=== PATIENT | female | born 1960 | race Caucasian/White ===

== ENCOUNTER → 2020-11-02 14:14 | Outpatient (CLI) | payer OTHER, SELFPAY ==
--- NOTE | 2020-11-02 14:20 | RAD_ITS ---
STUDY: X-RAY - LUMBAR SPINE REASON FOR EXAM: Female, 60 years old. Low back pain TECHNIQUE: 5 view(s) of the lumbar spine were obtained. COMPARISON: None FINDINGS: Normal lumbar lordosis. There is no substantial scoliosis. There is a normal alignment of the vertebrae. There is multilevel endplate spondylosis of the lumbar vertebrae. There is disc space narrowing throughout the lumbar spine most pronounced at L4-5. No demonstrated fracture The soft tissue structures are unremarkable. RAD/L/S Spine Min 4 Views IMPRESSION: Degenerative changes of the spine, as detailed above. Electronically Signed: Tristen Michael MD at 14:58 EDT , Service support ,
--- NOTE | 2020-11-02 14:20 | RAD_ITS ---
STUDY: X-RAY - PELVIS AND LEFT HIP REASON FOR EXAM: Female, 60 years old. Pain, decreased range of motion TECHNIQUE: 3 views of the pelvis and hip. COMPARISON: None. FINDINGS: There is a non-specific bowel gas pattern. Normal visualized soft tissue structures. Normal bilateral iliac wings, sacroiliac joints and visualized sacrum. Normal bilateral superior and inferior pubic rami. Normal pubic symphysis. Normal bilateral ischial tuberosities. Normal visualized femoral head. Normal acetabulum. There is moderate articular joint space narrowing of the hip. RAD/HIP, UNI W/ Pelvis 2-3 Views IMPRESSION: Moderate left hip arthrosis with subtle subchondral changes and cyst formation noted in the left femoral head. Age consistent right hip and SI joint arthrosis Electronically Signed: Tristen Michael MD at 14:59 EDT , Service support ,
== END ==
PROVIDERS: PCP Family Medicine; Referring Provider Family Medicine; Visit Provider Family Medicine
DX: M54.16 Radiculopathy, lumbar region (principal); M25.552 Pain in left hip
CPT/HCPCS: 72110; 73502

== ENCOUNTER → 2021-07-30 | Outpatient (CLI) | payer OTHER, SELFPAY ==
--- NOTE | 2021-07-30 14:14 | BI_ITS ---
MAMMOGRAPHY - BILATERAL SCREENING REASON FOR EXAM: Female, 61 years old. Routine annual screening examination. PERTINENT HISTORY: Non-contributory. TECHNIQUE: Digital bilateral breast colin (3D mammographic acquisition) in the CC and MLO projections. 2-D mediolateral oblique (MLO) and craniocaudad (CC) views of both breasts were obtained. CAD: Full Field Digital Mammography with Computer Added Detection was performed. COMPARISON: Comparison is made with prior study dated 06/20/2016 and 07/21/2013. FINDINGS: Breast Composition: There are scattered areas of fibroglandular density. There are no dominant masses or suspicious calcifications. No other significant abnormalities are identified. There has been no significant change since the prior study. BI/SCRN MAMM (CAD)W/COLIN BILAT IMPRESSION: Stable bilateral screening mammogram. Yearly follow-up mammogram recommended. (A) ASSESSMENT CATEGORY: BIRADS Category 1: Negative. A letter regarding these results will be sent to the patient by the facility within 30 days. Approximately 10% of breast cancers are not detected by mammography. A normal mammogram should not delay biopsy of a clinically suspicious abnormality. [id number] Electronically Signed: Flakito Travis MD at 10:25 EDT ,
--- NOTE | 2021-07-30 14:19 | BD_ITS ---
STUDY: DUAL ENERGY X-RAY ABSORPTIOMETRY / DXA REASON FOR EXAM: Female, 61 years old. M810. Patient is postmenopausal. TECHNIQUE: Bone Mineral Density (BMD) measurements of lumbar spine and bilateral hips were obtained. COMPARISON: None. FINDINGS: Lumbar Spine (L1-L4): g/cm2 (0.779) / T-score (-2.4) / Z-score (-0.9) Findings are suggestive of osteopenia with a high fracture risk. Left Femur Total: g/cm2 (0.565) / T-score (-3.1) / Z-score (-2.1) Left Femoral Neck: g/cm2 (0.584) / T-score (-2.4) / Z-score (-1.0) Right Femur Total: g/cm2 (0.650) / T-score (-2.4) / Z-score (-1.4) Right Femoral Neck: g/cm2 (0.603) / T-score (-2.2) / Z-score (-0.9) BD/Dexa Bone Density Study IMPRESSION: The patient is considered osteoporotic as outlined below according to World Seven Organization (WHO) criteria with a high fracture risk. Reference Information: The T-score is the number of standard deviations above or below the standard which is normal for young adults at their peak bone mineral density. The World Health Organization (WHO) interprets the T-scores as follows: Above -1 Normal bone density Between -1 and -2.5 Osteopenia Equal to / or below -2.5 Osteoporosis As a practical clinical guideline, osteopenia may be graded as follows: Mild -1 through -1.5 Moderate -1.6 through -2.0 Severe -2.1 through -2.4 The Z-score is the number of standard deviations above or below age-matched controls. A Z-score of less than -1.5 would be considered abnormal. References: 1. NIH Osteoporosis and Related Bone Diseases www osteo.org 2. International Society for Clinical Densitometry www iscd.org 3. National Osteoporosis Foundation www nof.org Electronically Signed: Flakito Travis MD at 14:44 EDT ,
== END | disposition home or self-care (01) ==
LOC: OPBD 14:11
PROVIDERS: PCP Family Medicine; Referring Provider Family Medicine; Visit Provider Family Medicine
DX: Z12.31 Encounter for screening mammogram for malignant neoplasm of breast (principal); M81.0 Age-related osteoporosis without current pathological fracture
CPT/HCPCS: 77063; 77067; 77080

== ENCOUNTER 2021-09-25 06:22 | Day surgery (SDC) | payer OTHER, SELFPAY ==
--- NOTE | 2021-09-25 06:49 | PCM.HP.STD ---
[facility] - General General Date of Admission: 09/25/21 Chief Complaint: Screening for intestinal cancer HPI Narrative JEFFREY QUARLES, is a 61 F who presents for screening colonoscopy today. She presents via open access. She denies ever having a previous colonoscopy. She denies abdominal pain. No bright red blood per rectum. No family history of colon cancer. [facility] Medical History (Updated 09/20/21 @ 08:36 by Charleen Watson) Arthritis Back pain History of pain when walking Hx of fracture of wrist Leg cramps Non-smoker Post-menopausal Rash Restless legs Wears glasses Home Medications triamcinolone acetonide 0.5 % topical cream 1 applic topical BID 07/22/21 [History Last Taken Unknown] acetaminophen 650 mg tablet,extended release 650 mg PO Q12H PRN Pain 09/20/21 [History Last Taken Unknown] aspirin 325 mg tablet 325 mg PO DAILY 09/20/21 [History Last Taken Unknown] omega-3 fatty acids-vitamin E 1,000 mg capsule 1,000 cap PO DAILY 09/20/21 [History Last Taken Unknown] Allergy/AdvReac Type Severity Reaction Status Date / Time No Known Allergies Allergy Unverified 09/20/21 08:27 Surgical History (Updated 09/20/21 @ 08:36 by Charleen Watson) History of bunionectomy Hx of ovarian cystectomy Social History Smoking Status: Never smoker ROS Constitutional Constitutional: Reports systems reviewed and no addt'l complaints, except as documented Cardiovascular Cardiovascular: Denies chest pain Respiratory/Chest Respiratory/Chest: Denies shortness of breath at rest Gastrointestinal Gastrointestinal: Denies abdominal pain, change in bowel habits, hematochezia or melena Physical Exam Const alert, oriented x3 and no apparent distress General Appearance: cooperative and comfortable Eyes General Eye: normal appearance of both eyes Neck General: normal visual inspection Chest inspection of chest normal Resp Effort and Inspection: able to speak in complete sentences and symmetric chest movement Auscultation: clear to auscultation bilaterally Cardio regular rate and regular rhythm GI soft to palpation, non-tender and non-distended Extremity no calf tenderness Neuro oriented x3 Psych thought process normal Assessment & Plan Assessment/Plan (1) Encounter for screening for malignant neoplasm of colon: PLAN: The patient presents via open access today to proceed with a screening colonoscopy with possible biopsy or polypectomy as indicated. She is aware of the technique, benefit, risk, alternatives. She has had an opportunity to ask and have questions answered. Dr. Linnea Uriarte is unavailable today and the patient is aware that I will be filling in to assist her with this procedure. She provides consent. Merrlil Pride M.D., F.A.C.S.
[2021-09-25 06:50] VITALS: BP 104/54; PULSE 68; RESP 16; TEMP 36.9; O2SAT 100; BMI 22.1
[2021-09-25] MEDS: Lactated Ringers 1,000 ML 15 ML IV (06:57)
--- NOTE | 2021-09-25 07:30 | COLBX_PTH ---
PATIENT: JEFFREY QUARLES LOC: EN U#:[id number] AGE/SX: 61/F ROOM: RE09/25/[address]: Dr. Merrill Pride MD : 1960 BED: DIS: 09/25/2021 SPEC #: [id number] RECD: 09/25/21 09:24 STATUS: JOLYNN ANURAG #: [id number] SRIRAM: 09/25/21 07:[address]: Merrill Pride DEPT: SURGICAL PATHOLOGY RECD BY: Rere Moreno ENTERED: 09/25/21 11:25 SP TYPE: COLON BX OTHR DR: Dr. Fabienne Ling, DO Tissues: Transverse colon Procedures: Surgery Specimen Level IV HEADER OPERATION: Colonoscopy ? open access (MAC) PRE-OP DIAGNOSIS: Malignant neoplasm of colon TISSUE SUBMITTED: Distal transverse colon tubular polyp MICROSCOPIC DIAGNOSIS Distal transverse colon polyp, biopsy: Benign mucosal polyp. See comment. AM:alfonso 09/26/2021 COMMENT Neither hyperplastic nor adenomatous change is identified. Clinical correlation is suggested. Case has been reviewed in consultation with Dr. Betancourt who concurs with the above diagnosis. IDC:SJ MICROSCOPIC DESCRIPTION Slides are reviewed. GROSS DESCRIPTION Received in fixative is one container labeled with the patient's name and designated distal transverse colon polyp. The specimen consists of an elongated fragment of rizzo tissue measuring 2.5 x 0.5 x 0.3 cm. The specimen is totally submitted in one cassette. / AM:alfonso 09/25/2021 TC:1 CPT: 63373
[2021-09-25 08:10] VITALS: BP 104/54; BP 115/67; PULSE 69; RESP 16; TEMP 36.9; O2SAT 97
--- NOTE | 2021-09-25 08:11 | OP.COLON_ITS ---
Patient Name: Natalie Trimble Procedure Date: 09/25/2021 7:33 AM Date of : 1960 Age: 61 Procedure: Colonoscopy Indications: Screening for colorectal malignant neoplasm Providers: Merrill Pride MD Medicines: See the Anesthesia note for documentation of the administered medications Patient Profile: Last Colonoscopy: none. The patient's first colonoscopy is today. Complications: No immediate complications. Procedure: Pre-Anesthesia Assessment: - Prior to the procedure, a History and Physical was performed, and patient medications and allergies were reviewed. The patient's tolerance of previous anesthesia was also reviewed. The risks and benefits of the procedure and the sedation options and risks were discussed with the patient. All questions were answered, and informed consent was obtained. Prior Anticoagulants: The patient has taken no previous anticoagulant or antiplatelet agents. ASA Grade Assessment: II - A patient with mild systemic disease. After reviewing the risks and benefits, the patient was deemed in satisfactory condition to undergo the procedure. After I obtained informed consent, the scope was passed under direct vision. Throughout the procedure, the patient's blood pressure, pulse, and oxygen saturations were monitored continuously. The colonoscope was introduced through the anus and advanced to the cecum, identified by appendiceal orifice and ileocecal valve. The colonoscopy was performed without difficulty. The patient tolerated the procedure well. The quality of the bowel preparation was good. The ileocecal valve and the appendiceal orifice were photographed. Scope In: 7:38:00 AM Scope Withdrawal Time 0 hours 16 minutes 20 seconds Scope Out: 8:04:03 AM Total Procedure Duration Time 0 hours 26 minutes 3 seconds Findings: Hemorrhoids were found on perianal exam. A 30 mm polyp was found in the distal transverse colon. The polyp was pedunculated. The polyp was removed with a hot snare. Resection and retrieval were complete. To prevent bleeding post-intervention, one hemostatic clip was successfully placed. There was no bleeding at the end of the procedure. The exam was otherwise without abnormality. Impression: - Hemorrhoids found on perianal exam. - One 30 mm polyp in the distal transverse colon, long and tubular, removed with a hot snare. Resected and retrieved. Clip was placed. - The examination was otherwise normal. Recommendation: - Discharge patient to home. - Resume previous diet. - Continue present medications. - Repeat colonoscopy in 5 years for surveillance. - Telephone my office for pathology results in 1 week. Procedure Code(s): --- Professional --- 82237, Colonoscopy, flexible; with removal of tumor(s), polyp(s), or other lesion(s) by snare technique Diagnosis Code(s): --- Professional --- Z12.11, Encounter for screening for malignant neoplasm of colon K64.9, Unspecified hemorrhoids D12.3, Benign neoplasm of transverse colon (hepatic flexure or splenic flexure) CPT copyright 2017 [place]. All rights reserved. The codes documented in this report are preliminary and upon dining room attendant review may be revised to meet current compliance requirements. Merrill Pride MD 09/25/2021 8:10:57 AM This report has been signed electronically. Number of Addenda: 0 Note Initiated On: 09/25/2021 7:33 AM
--- NOTE | 2021-09-25 08:12 | OP.CCLET_ITS ---
09/25/2021 Fabienne Ling [address] [place] [address] Re : Colonoscopy procedure for Natalie Trimble Dear Dr. Ling This procedure was performed on Saturday, September 25, 2021. My impressions and recommendations are as follows: Impressions : - Hemorrhoids found on perianal exam. - One 30 mm polyp in the distal transverse colon, long and tubular, removed with a hot snare. Resected and retrieved. Clip was placed. - The examination was otherwise normal. Recommendations : - Discharge patient to home. - Resume previous diet. - Continue present medications. - Repeat colonoscopy in 5 years for surveillance. - Telephone my office for pathology results in 1 week. My findings are described in the full procedure note, which is enclosed. If I can be of further assistance, please feel free to contact me at Doctor phone number(s): Work: . Sincerely, Merrill Pride MD 09/25/2021 8:10:57 AM This report has been signed electronically.
[2021-09-25 08:15] VITALS: BP 104/54; BP 114/68; PULSE 68; RESP 16; O2SAT 100
[2021-09-25 08:20] VITALS: BP 104/54; BP 116/63; PULSE 66; RESP 16; O2SAT 100
[2021-09-25 08:25] VITALS: BP 104/54; BP 121/63; PULSE 62; RESP 16; TEMP 36.3; O2SAT 99
[2021-09-25 08:50] VITALS: BP 104/54
== END 2021-09-25 09:03 | disposition home or self-care (01) ==
LOC: EN 06:25 → AC 06:25
PROVIDERS: PCP Family Medicine; Referring Provider Family Medicine; Visit Provider Surgery
PROC: 0DJD8ZZ Inspection of Lower Intestinal Tract, Via Natural or Artificial Opening Endoscopic (ICD-10-PCS; CPT 45378; principal; 2021-09-25 07:25)
DX: Z12.11 Encounter for screening for malignant neoplasm of colon (principal); K63.5 Polyp of colon; K64.9 Unspecified hemorrhoids; Z79.82 Long term (current) use of aspirin
CPT/HCPCS: 45385; 88305; J7120

== ENCOUNTER → 2024-12-13 | Outpatient (CLI) | payer OTHER, SELFPAY ==
[2024-12-13 15:25] LABS: Hematocrit 39.7 % (37-47); Hemoglobin 13.0 g/dL (12.0-15.0); Immature Granulocytes Count 0.000 X10^3/uL (0.0-0.0); Mean Corp Hgb Conc 32.7 g/dL (32-36); Mean Corpuscular Volume 94.5 fL (81-99); Mean Platelet Vol. 9.0 fl (6.2-12.0); NRBC Flagged by Analyzer 0 % (0-5); Platelet Count 301 K/mm3 (150-450); RBC Distribution Width CV 13.2 % (11.6-14.6); RBC Distribution Width SD 46.6 fl (35.1-43.9); Red Blood Count 4.20 M/mm3 (4.2-5.4); White Blood Count 4.2 K/mm3 (4.4-11.0)
[2024-12-13 18:15] LABS: AST(SGOT) 33 U/L (<=31); Alanine Aminotransfer ALT/SGPT 41 U/L (<=34); Albumin, Serum 4.3 g/dL (3.4-4.8); Alkaline Phosphatase 88 U/L (35-104); Anion Gap 10 (5-15); BUN 16 mg/dL (4-19); BUN/Creat Ratio 17.6 RATIO (10-20); Calcium,Total 9.5 mg/dL (7.6-11.0); Carbon Dioxide 24.0 mmol/L (21.0-32.0); Chloride 106 mmol/L (98-108); Cholesterol 319 mg/dL (<=200); Globulin 2.9 g/dL (2.2-4.2); Glucose 96 mg/dL (70-99); Low Density Lipoprotein Calc. 230 mg/dL; Potassium 4.4 mmol/L (3.3-5.1); Triglycerides 77 mg/dL; Very Low Density Lipoprotein 15 mg/dL (5-40); Vitamin D,25 Hydroxy 17.4 ng/mL (30-100); cholesterol:hdl ratio screen 4.35
--- OUTSIDE RECORDS SUMMARY | 2024-12-13 20:15 | XMS RPT_ITS | CCD ---
Author Organization [facility] Inform ion Partnership [facility] Care Team Providers Care B[employer] Operations Manager Name Role Phone Dr. Fabienne Ling Primary Care Provider Kacie Ravi Attending Provider Unavailable SANDRINE NESS Primary Care Physician NOHEMY HAYS MD Attending Unavailable SANDRINE NESS Primary Care Unavailable NOHEMY HAYS MD Attending Unavailable SANDRINE NESS Primary Care Unavailable Sandrine Ness Attending Unavailable Sandrine Ness Referring Unavailable Fabienne Ling Primary Care Unavailable Sandrine Ness Attending Unavailable Fabienne Ling Primary Care Unavailable Fabienne Ling Primary Care Unavailable Sandrine Ness Attending Unavailable Medications Current Medications Medication Drug Class(es) Dates Sig (Normalized) Sig (Original) [facility] Medication (4 sources) Start: 02-20-2022 [facility] Medication 0 Refill(s) Start Date: 02/20/22 Status: Ordered triamcinolone acetonide 5 mg/ml topical cream (1 source) Corticosteroid Start: 07-22-2021 Triamcinolone Acetonide Active 1 APPLIC TOPICAL TWICE A DAY July 22, 2021 12:04pm Problems Problem Classification Problem Date Documented Date Episodic/Chronic Hemorrhoids (1 source) Hemorrhoids; Translations: [Unspecified hemorrhoids] Episodic Osteoarthritis (1 source) Osteoarthritis of left hip joint; Translations: [Unilateral primary osteoarthritis, left hip] Chronic Osteoporosis (1 source) Age-related osteoporosis without current pathological fracture; Translations: [Age-related osteoporosis without current pathological fracture] Onset: 12-12-2024 Chronic Other inflammatory condition of skin (1 source) Psoriasis; Translations: [Psoriasis, unspecified] Chronic Other screening for suspected conditions (not mental disorders or infectious disease) (2 sources) Patient encounter status; Translations: [Encounter for screening for malignant neoplasm of colon] Onset: 12-12-2024 Episodic Spondylosis; intervertebral disc disorders; other back problems (1 source) Lumbar spondylosis; Translations: [Spondylosis without myelopathy or radiculopathy, lumbar region] Chronic Results Test Name Value Interpretation Reference Range Facility CBC W/Diff, Automatedon 09-0 Absolute Lymph 1.41 X10 3/uL Normal 0.83-4.51 [facility] Comment on above: Performed By: #### L 100.0100 #### [facility] [address] [place], [address] Absolute Neut 2.2 X10 3/uL Normal 2.0-7.7 [facility] Comment on above: Performed By: #### L 100.0100 #### [facility] [address] [place], [address] Basophils/100 WBC (Bld) 0.5 % Normal 0-1 [facility] Comment on above: Performed By: #### L 100.0100 #### [facility] [address] [place], [address] Eosinophils/100 WBC (Bld) 5.8 % High 0-5 [facility] Comment on above: Performed By: #### L 100.0100 #### [facility] [address] [place], [address] Erythrocyte distribution width (RBC) [Ratio] 13.2 % Normal 11.6-14.6 [facility] Comment on above: Performed By: #### L 100.0100 #### [facility] [address] [place], [address] Hematocrit (Bld) [Volume fraction] 39.7 % Normal 37-47 [facility] Comment on above: Performed By: #### L 100.0100 #### [facility] [address] [place], [address] Hemoglobin (Bld) [Mass/Vol] 13.0 g/dL Normal 12.0-15.0 [facility] Comment on above: Performed By: #### L 100.0100 #### [facility] [address] [place], [address] IG% 0.000 Normal 0.0-0.9 [facility] Comment on above: Result Comment: IG% - Immature Granulocytes (promyelocytes, myelocytes and metamyelocytes) > 1% indicates that a LEFT SHIFT is Present. Performed By: #### L 100.0100 #### [facility] [address] [place], [address] Lymphocytes/100 WBC (Bld) 33.8 % Normal 19-41 [facility] Comment on above: Performed By: #### L 100.0100 #### [facility] [address] [place], [address] MCH (RBC) [Entitic mass] 31.0 pg Normal 27.0-32.0 [facility] Comment on above: Performed By: #### L 100.0100 #### [facility] [address] [place], [address] MCHC (RBC) [Mass/Vol] 32.7 g/dL Normal 32-36 [facility] Comment on above: Performed By: #### L 100.0100 #### [facility] [address] [place], [address] MCV (RBC) [Entitic vol] 94.5 fL Normal 81-99 [facility] Comment on above: Performed By: #### L 100.0100 #### [facility] [address] [place], [address] Monocytes/100 WBC (Bld) 7.9 % Normal 0-10 [facility] Comment on above: Performed By: #### L 100.0100 #### [facility] [address] [place], [address] Neutrophils/100 WBC (Bld) 52.0 % Normal 47-70 [facility] Comment on above: Performed By: #### L 100.0100 #### [facility] [address] [place], [address] Nucleated RBC (Bld) [#/Vol] 0 10*3/uL Normal 0-5 [facility] Comment on above: Performed By: #### L 100.0100 #### [facility] [address] [place], [address] Platelet mean volume (Bld) [Entitic vol] 9.0 fL Normal 6.2-12.0 [facility] Comment on above: Performed By: #### L 100.0100 #### [facility] [address] [place], [address] Platelets (Bld) [#/Vol] 301 10*3/uL Normal 150-450 [facility] Comment on above: Performed By: #### L 100.0100 #### [facility] [address] [place], [address] RBC (Bld) [#/Vol] 4.20 10*6/uL Normal 4.2-5.[address] [facility] Comment on above: Performed By: #### L 100.0100 #### [facility] [address] [place], [address] RDW SD 46.6 fl High 35.1-43.9 [facility] Comment on above: Performed By: #### L 100.0100 #### [facility] [address] [place], [address] WBC (Bld) [#/Vol] 4.2 10*3/uL Low 4.4-11.0 [facility] Comment on above: Performed By: #### L 100.0100 #### [facility] [address] [place], [address] Final Surgical Pathology Rep [place] 03-12-2022 Final Surgical Pathology Report . Pathology Reports Accession: Collected Date/Time: Received Date/Time: Pathologist: [id number] 03/07/2022 12:45 EST 03/10/2022 09:36 EST MD PAPA WEST Final Surgical Pathology Report DIAGNOSIS: LEFT FEMORAL HEAD, REPLACEMENT - OSTEOARTHRITIS WITH EXTENSIVE EBURNATION. NEGATIVE FOR INFLAMMATION OR NEOPLASIA. COMMENT: [facility] [id number] CLINICAL INFORMATION: Procedure: ANTERIOR LEFT TOTAL HIP ARTHROPLASTY Preoperative diagnosis: UNILATERAL PRIMARY OSTEOARTHRITIS LEFT HIP Postoperative diagnosis: UNILATERAL PRIMARY OSTEOARTHRITIS LEFT HIP SPECIMEN: A LEFT FEMORAL HEAD, LEFT GROSS DESCRIPTION: A. Received in formalin, labeled with the patients name, Case #[id number], and left femoral head are 3 fragments of irregular shaped bone none of which have articular surfaces aggregating to 4 x 2.7 x 1.5 cm. RS -1 following decalcification Dictated by KUMAR SPEARS MICROSCOPIC DESCRIPTION: Slides reviewed. Electronically Signed by Pathology Report verified by [facility] PAPA WEST MD Sign out Date: 03/12/2022 18:13 Performing Lab: [facility], [address] [place] [address] Pathology Dept Normal [facility]) Gel ABOon 03-07-2022 ABO/Rh Interp Positive Invalid Interpretation Code [facility]) Comment on above: Performed By: #### A BOG, ANSG #### [address] [address] Gel ABSon 03-07-2022 Antibody Screen Gel Negative Normal [facility]) Comment on above: Performed By: #### B MP, GFR, ALB, ANSG, ABOG #### [address] [address] LABORATORYOrdered By: Brandy Cardenas on 03-07-2022 ABO/Rh Interp Positive Invalid Interpretation Code AO BB SS Antibody Screen Gel Negative ABSC (03/07/22 10:24 AM) Invalid Interpretation Code AO BB SS XR FLUORO 1-2 HRS TECH TIMEo n 03-07-2022 XR FLUORO 1-2 HRS TECH TIME ORIGINAL Images acquired, not reported on this accession number. Normal [facility] ([place]) XR HIP LEFT W/PELVIS 4 VIEWS on 03-07-2022 XR HIP LEFT W/PELVIS 4 VIEWS ORIGINAL EXAMINATION: 1 x-ray view of the pelvis and 2 XRAY VIEWS OF THE LEFT HIP.03/07/2022 2:12 pm COMPARISON: None. HISTORY: ORDERING SYSTEM PROVIDED HISTORY: Reason for Exam: Status Post Arthroplasty FINDINGS: The pelvic ring is intact. No acute fracture or dislocation is identified. Degenerative changes seen of the spine. Left hip arthroplasty is intact.. Air seen in the soft tissues of the left hip IMPRESSION: Anatomic alignment of the new left hip arthroplasty. Interpreted by: Chema Kerr MD Preliminary Report By: Chema Kerr MD Electronically signed By Chema Kerr MD Dictated Date: 03/07/2022 2:21:28 PM Prelim Date: 03/07/2022 2:22:50 PM Sign Date: 03/07/2022 2:22:50 PM Ordering Provider: NOHEMY HAYS Normal [facility] ([place]) .GFRon 02-21-2022 GFR Non- 75 ml/min/1.73sqm Normal [facility] ([place]) Comment on above: Result Comment: GFR Population mean for , Non- Americans Ages 20-29 = 116 mL/min/1.73 sq.m. Ages 30-39 = 107 mL/min/1.73 sq.m. Ages 40-49 = 99 mL/min/1.73 sq.m. Ages 50-59 = 93 mL/min/1.73 sq.m. Ages 60-69 = 85 mL/min/1.73 sq.m. Ages 70+ = 75 mL/min/1.73 sq.m. Chronic Kidney Disease: Less than 60 mL/min/1.73 square meters End Stage Renal Disease: Less than 15 mL/min/1.73 square meters Performed By: #### B MP, GFR, ALB, ANSG, ABOG #### [address] [address] GFR 91 ml/min/1.73sqm Normal [facility] ([place]) Comment on above: Result Comment: GFR Population mean for , Non- Americans Ages 20-29 = 116 mL/min/1.73 sq.m. Ages 30-39 = 107 mL/min/1.73 sq.m. Ages 40-49 = 99 mL/min/1.73 sq.m. Ages 50-59 = 93 mL/min/1.73 sq.m. Ages 60-69 = 85 mL/min/1.73 sq.m. Ages 70+ = 75 mL/min/1.73 sq.m. Chronic Kidney Disease: Less than 60 mL/min/1.73 square meters End Stage Renal Disease: Less than 15 mL/min/1.73 square meters Performed By: #### B MP, GFR, ALB, ANSG, ABOG #### [address] [address] ALBon 02-21-2022 Albumin Level 3.9 G/dL Normal 3.4-4.8 [facility] ([place]) Comment on above: Performed By: #### B MP, GFR, ALB, ANSG, ABOG #### [address] [address] BMPon 02-21-2022 BUN/Creatinine Ratio 21 ratio Normal 7-27 [facility] ([place]) Comment on above: Performed By: #### B MP, GFR, ALB, ANSG, ABOG #### [address] [address] Calcium [Mass/Vol] 9.5 mg/dL Normal 8.4-10.2 [facility] ([place]) Comment on above: Performed By: #### B MP, GFR, ALB, ANSG, ABOG #### [address] [address] Chloride [Moles/Vol] 103 mmol/L Normal 98-107 [facility] ([place] Comment on above: Performed By: #### B MP, GFR, ALB, ANSG, ABOG #### [address] [address] CO2 [Moles/Vol] 29 mmol/L Normal 23-31 [facility] ([place]) Comment on above: Performed By: #### B MP, GFR, ALB, ANSG, ABOG #### [address] [address] Creatinine [Mass/Vol] 0.78 mg/dL Normal 0.55-1.02 [facility] ([place]) Comment on above: Performed By: #### B MP, GFR, ALB, ANSG, ABOG #### [address] [address] Electrolyte Balance 9.0 mEq/L Normal 4.0-15.0 [facility] ([place] Comment on above: Performed By: #### B MP, GFR, ALB, ANSG, ABOG #### [address] [address] Glucose [Mass/Vol] 85 mg/dL Normal 80-115 [facility] ([place] Comment on above: Performed By: #### B MP, GFR, ALB, ANSG, ABOG #### [address] [address] Potassium [Moles/Vol] 4.3 mmol/L Normal 3.5-5.1 [facility] ([place] Comment on above: Performed By: #### B MP, GFR, ALB, ANSG, ABOG #### [address] [address] Sodium [Moles/Vol] 141 mmol/L Normal 136-145 [facility] ([place] Comment on above: Performed By: #### B MP, GFR, ALB, ANSG, ABOG #### [address] [address] Urea nitrogen [Mass/Vol] 16 mg/dL Normal 7-18 [facility] ([place] Comment on above: Performed By: #### B MP, GFR, ALB, ANSG, ABOG #### [address] [address] .Auto Diffon 02-20-2022 Basophil, Absolute 0.0 10 3/mcL Normal 0.0-0.2 [facility] ([place] Comment on above: Performed By: #### B MP, GFR, ALB, ANSG, ABOG #### [address] [address] Basophils/100 WBC (Bld) 0.7 % Normal 0.0-2.5 [facility] ([place] Comment on above: Performed By: #### B MP, GFR, ALB, ANSG, ABOG #### [address] [address] Eosinophil, Absolute 0.3 10 3/mcL Normal 0.0-0.4 [facility] ([place]) Comment on above: Performed By: #### B MP, GFR, ALB, ANSG, ABOG #### [address] [address] Eosinophils/100 WBC (Bld) 6.7 % Normal 0.0-7.0 [facility] ([place] Comment on above: Performed By: #### B MP, GFR, ALB, ANSG, ABOG #### [address] [address] Lymphocyte, Absolute 1.0 10 3/mcL Normal 0.8-3.9 [facility] ([place]) Comment on above: Performed By: #### B MP, GFR, ALB, ANSG, ABOG #### [address] [address] Lymphocytes/100 WBC (Bld) 23.1 % Normal 10.0-50.0 [facility] ([place] Comment on above: Performed By: #### B MP, GFR, ALB, ANSG, ABOG #### [address] [address] Monocyte, Absolute 0.3 10 3/mcL Normal 0.2-1.0 [facility] ([place] Comment on above: Performed By: #### B MP, GFR, ALB, ANSG, ABOG #### [address] [address] Monocytes/100 WBC (Bld) 7.1 % Normal 1.7-13.0 [facility] ([place] Comment on above: Performed By: #### B MP, GFR, ALB, ANSG, ABOG #### [address] [address] Neutrophils/100 WBC (Bld) 62.4 % Normal 37.0-80.0 [facility] ([place] Comment on above: Performed By: #### B MP, GFR, ALB, ANSG, ABOG #### [address] [address] .NEUABSon 02-20-2022 Neutrophil, Absolute 2.6 10 3/mcL Low 2.9-6.2 [facility] ([place] Comment on above: Performed By: #### B MP, GFR, ALB, ANSG, ABOG #### [address] [address] CBCon 02-20-2022 Erythrocyte distribution width (RBC) [Ratio] 13.5 % Normal 11.5-14.5 [facility] ([place]) Comment on above: Order Comment: Pre-A dmission Testing Performed By: #### B MP, GFR, ALB, ANSG, ABOG #### [address] [address] Hematocrit (Bld) [Volume fraction] 37.4 % Normal 37.0-47.0 [facility] ([place] Comment on above: Order Comment: Pre-A dmission Testing Performed By: #### B MP, GFR, ALB, ANSG, ABOG #### [address] [address] Hgb 12.8 G/dL Normal 12.0-16.0 [facility] ([place] Comment on above: Order Comment: Pre-A dmission Testing Performed By: #### B MP, GFR, ALB, ANSG, ABOG #### [address] [address] MCH (RBC) [Entitic mass] 31.4 pg High 27.0-31.2 [facility] ([place] Comment on above: Order Comment: Pre-A dmission Testing Performed By: #### B MP, GFR, ALB, ANSG, ABOG #### [address] [address] MCHC 34.2 G/dL Normal 33.0-37.0 [facility] ([place] Comment on above: Order Comment: Pre-A dmission Testing Performed By: #### B MP, GFR, ALB, ANSG, ABOG #### [address] [address] MCV (RBC) [Entitic vol] 91.9 fL Normal 80.0-94.0 [facility] ([place] Comment on above: Order Comment: Pre-A dmission Testing Performed By: #### B MP, GFR, ALB, ANSG, ABOG #### [address] [address] Platelet 280 10 3/mcL Normal 130-400 [facility] ([place]) Comment on above: Order Comment: Pre-A dmission Testing Performed By: #### B MP, GFR, ALB, ANSG, ABOG #### [address] [address] Platelet mean volume (Bld) [Entitic vol] 6.5 fL Low 7.4-10.4 [facility] ([place]) Comment on above: Order Comment: Pre-A dmission Testing Performed By: #### B MP, GFR, ALB, ANSG, ABOG #### [address] [address] RBC 4.07 10 6/mcL Low 4.20-5.40 [facility] ([place]) Comment on above: Order Comment: Pre-A dmission Testing Performed By: #### B MP, GFR, ALB, ANSG, ABOG #### [address] [address] WBC 4.2 10 3/mcL Low 4.6-10.8 [facility] ([place] Comment on above: Order Comment: Pre-A dmission Testing Performed By: #### B MP, GFR, ALB, ANSG, ABOG #### [address] [address] Gel ABOon 02-20-2022 ABO/Rh Interp Positive Invalid Interpretation Code [facility] ([place] Comment on above: Performed By: #### B MP, GFR, ALB, ANSG, ABOG #### [address] [address] Gel ABSon 02-20-2022 Antibody Screen Gel Negative Normal [facility] ([place]) Comment on above: Performed By: #### B MP, GFR, ALB, ANSG, ABOG #### [address] [place], [place] [address] LABORATORYOrdered By: Brandy Cardenas on 02-20-2022 ABO/Rh Interp Positive Invalid Interpretation Code AO BB SS Antibody Screen Gel Negative ABSC (02/20/22 10:30 AM) Invalid Interpretation Code AO BB SS Basophil, Absolute 0.0 103/mcL Invalid Interpretation Code 0.0 - 0.2 10^3/mcL AO Workflow SS Basophils/100 WBC (Bld) 0.7 % Invalid Interpretation Code 0.0 - 2.5 % AO Workflow SS Eosinophil, Absolute 0.3 103/mcL Invalid Interpretation Code 0.0 - 0.4 10^3/mcL AO Workflow SS Eosinophils/100 WBC (Bld) 6.7 % Invalid Interpretation Code 0.0 - 7.0 % AO Workflow SS Erythrocyte distribution width (RBC) [Ratio] 13.5 % Invalid Interpretation Code 11.5 - 14.5 % AO Workflow SS Hematocrit (Bld) [Volume fraction] 37.4 % Invalid Interpretation Code 37.0 - 47.0 % AO Workflow SS Hemoglobin (Bld) [Mass/Vol] 12.8 G/dL Invalid Interpretation Code 12.0 - 16.0 G/dL AO Workflow SS Lymphocyte, Absolute 1.0 103/mcL Invalid Interpretation Code 0.8 - 3.9 10^3/mcL AO Workflow SS Lymphocytes/100 WBC (Bld) 23.1 % Invalid Interpretation Code 10.0 - 50.0 % AO Workflow SS MCH (RBC) [Entitic mass] 31.4 pg Invalid Interpretation Code 27.0 - 31.2 pg AO Workflow SS MCHC 34.2 G/dL Invalid Interpretation Code 33.0 - 37.0 G/dL AO Workflow SS MCV (RBC) [Entitic vol] 91.9 fL Invalid Interpretation Code 80.0 - 94.0 fL AO Workflow SS Monocyte, Absolute 0.3 103/mcL Invalid Interpretation Code 0.2 - 1.0 10^3/mcL AO Workflow SS Monocytes/100 WBC (Bld) 7.1 % Invalid Interpretation Code 1.7 - 13.0 % AO Workflow SS Neutrophil, Absolute 2.6 103/mcL Invalid Interpretation Code 2.9 - 6.2 10^3/mcL AO Workflow SS Neutrophils/100 WBC (Bld) 62.4 % Invalid Interpretation Code 37.0 - 80.0 % AO Workflow SS Platelet mean volume (Bld) [Entitic vol] 6.5 fL Invalid Interpretation Code 7.4 - 10.4 fL AO Workflow SS Platelets (Bld) [#/Vol] 280 103/mcL Invalid Interpretation Code 130 - 400 10^3/mcL AO Workflow SS RBC (Bld) [#/Vol] 4.07 106/mcL Invalid Interpretation Code 4.20 - 5.40 10^6/mcL AO Workflow SS WBC (Bld) [#/Vol] 4.2 103/mcL Invalid Interpretation Code 4.6 - 10.8 10^3/mcL AO Workflow SS LABORATORYOrdered By: Patel Feldman on 02-20-2022 Albumin BCP dye [Mass/Vol] 3.9 G/dL Invalid Interpretation Code 3.4 - 4.8 G/dL AO ADM SS Calcium [Mass/Vol] 9.5 mg/dL Invalid Interpretation Code 8.4 - 10.2 mg/dL AO ADM SS Chloride [Moles/Vol] 103 mmol/L Invalid Interpretation Code 98 - 107 mmol/L AO ADM SS CO2 [Moles/Vol] 29 mmol/L Invalid Interpretation Code 23 - 31 mmol/L AO ADM SS Creatinine [Mass/Vol] 0.78 mg/dL Invalid Interpretation Code 0.55 - 1.02 mg/dL AO ADM SS Electrolyte Balance 9.0 mEq/L Invalid Interpretation Code 4.0 - 15.0 mEq/L AO ADM SS Glucose [Mass/Vol] 85 mg/dL Invalid Interpretation Code 80 - 115 mg/dL AO ADM SS Potassium [Moles/Vol] 4.3 mmol/L Invalid Interpretation Code 3.5 - 5.1 mmol/L AO ADM SS Sodium [Moles/Vol] 141 mmol/L Invalid Interpretation Code 136 - 145 mmol/L AO ADM SS Urea nitrogen [Mass/Vol] 16 mg/dL Invalid Interpretation Code 7 - 18 mg/dL AO ADM SS Urea nitrogen/Creatinine [Mass ratio] 21 ratio Invalid Interpretation Code 7 - 27 ratio AO ADM SS LABORATORYOrdered By: SYSTEM SYSTEM on 02-20-2022 GFR 91 ml/min/1.73sqm Invalid Interpretation Code AO Chemistry S GFR Non- 75 ml/min/1.73sqm Invalid Interpretation Code AO Chemistry S Vital Signs Date Time Vital Sign Value Performing Clinician Facility 03-07-2022 18:48-0500 Diastolic Blood Pressure Non-Invasive [address]MY HAYS MD [facility] 03-07-2022 18:48-0500 Heart rate 71 /min DR NOHEMY HAYS MD [facility] 03-07-2022 18:48-0500 Respiratory rate 15 /min DR NOHEMY HAYS MD [facility] 03-07-2022 18:48-0500 Systolic Blood Pressure Non-Invasive [address] NOHEMY HAYS MD [facility] 03-07-2022 17:15-0500 Diastolic Blood Pressure Non-Invasive [address] NOHEMY HAYS MD [facility] 03-07-2022 17:15-0500 Heart rate 62 /min DR NOHEMY HAYS MD [facility] 03-07-2022 17:15-0500 Respiratory rate 18 /min DR NOHEMY HAYS MD [facility] 03-07-2022 17:15-0500 Systolic Blood Pressure Non-Invasive [address] NOHEMY HAYS MD [facility] 03-07-2022 16:14-0500 Diastolic Blood Pressure Non-Invasive [address] NOHEMY HAYS MD [facility] 03-07-2022 16:14-0500 Heart rate 65 /min DR NOHEMY HAYS MD [facility] 03-07-2022 16:14-0500 Respiratory rate 18 /min DR NOHEMY HAYS MD [facility] 03-07-2022 16:14-0500 Systolic Blood Pressure Non-Invasive [address] NOHEMY HAYS MD [facility] 03-07-2022 14:15-0500 Body temperature 96.08 [degF] DR NOHEMY HAYS MD [facility] 03-07-2022 13:45-0500 Respiratory Rate - Anes 10 br/min DR NOHEMY HAYS MD [facility] 03-07-2022 13:40-0500 Respiratory Rate - Anes 9 br/min DR NOHEMY HAYS MD [facility] 03-07-2022 13:35-0500 Respiratory Rate - Anes 9 br/min DR NOHEMY HAYS MD [facility] 03-07-2022 09:58-0500 Body height [address] NOHEMY HAYS MD [facility] 03-07-2022 09:58-0500 Body temperature 97.16 [degF] DR NOHEMY HAYS MD [facility] 03-07-2022 09:58-0500 Body weight [address] NOHEMY HAYS MD [facility] 03-07-2022 09:58-0500 Heart rate 65 /min DR NOHEMY HAYS MD [facility] 02-20-2022 10:03-0500 Body height [address] NOHEMY HAYS MD [facility] 02-20-2022 10:03-0500 Body weight [address] NOHEMY HAYS MD [facility] 07-22-2021 12:07-0400 Body height 160.[address] Fabienne Ling Work Phone: [facility] Work Phone: 07-22-2021 12:07-0400 Body mass index (BMI) [Ratio] 22.1 kg/m2 Dr. Fabienne Ling Work Phone: [facility] Work Phone: 07-22-2021 12:07-0400 Body weight 56.[address] Fabienne Ling Work Phone: [facility] Work Phone: Encounters Encounter Date Encounter Type Care Provider Facility Start: 01-03-2025 ambulatory [facility] Facility: [facility] Start: 12-13-2024 ambulatory [facility] Facility:[facility] Start: 12-13-2024 ambulatory [facility] Facility: [facility] Start: 03-07-2022 End: 03-07-2022 ambulatory NOHEMY HAYS MD Facility:B Start: 03-07-2022 End: 03-07-[address] NOHEMY HAYS MD [facility] Start: 02-20-2022 End: 02-21-2022 ambulatory NOHEMY HAYS MD Facility:[facility] Start: 02-20-2022 End: 02-20-[address] NOHEMY HAYS MD [facility] Start: 07-30-2021 End: 07-30-[address] Fabienne Ling Work Phone: [facility] Start: 07-22-2021 Non-patient / Non-visit Dr. Alix Ling Work Phone: [facility] Procedures Date Procedure Procedure Detail Performing Clinician Start: 03-07-2022 Total replacement of left hip joint DR NOHEMY HAYS MD Comment on above: ANTERIOR Start: 07-30-2021 Dual energy X-ray absorptiometry Dr. Fabienne Ling Work Phone: Start: 07-30-2021 Screening mammography D margi Ling Work Phone: Colonoscopy DR NOHEMY Kruger MD Dilation and curettage DR TAISHA POWELL Excision of bunion DR NOHEMY HAYS MD Comment on above: RIGHT Hysteroscopy DR NOHEMY Kruger MD Wrist joint structur e (body structure) DR NOHEMY HAYS MD Comment on above: RIGHT Payers Date Payer Category Payer Self-pay [id number] [id number] Unknown [id number] 2022 Unknown [id number] 1960 Unknown [id number] 2.16.8 [id number] 1960 Unknown [id number] 2.16.8 [id number] Unknown SELF PAY INSURANCE [id number] Unknown SELF PAY INSURANCE [id number] Unknown [id number] 2.16.8 [id number] Unknown [id number] 2.16.8 [id number] Unknown [id number] 2.16.8 [id number] Social History Date Type Detail Facility Tobacco smoking stat [facility] [facility] Work Phone: Start: 1960 Sex Assigned At Female A [facility] Start: 02-20-2022 Tobacco smoking status Never s moked tobacco (finding) [facility] Functional Status Date Assessment Result Facility 03-07-2022 Functional Status Awake, Resting [facility] 03-07-2022 Functional Status bilateral knee high [facility] 03-07-2022 Functional Status Mod I [facility] 03-07-2022 Functional Status ice on [facility] 03-07-[address] [facility] 02-20-2022 Functional Status Sensory Deficits None A [facility] Mental Status Date Assessment Result Facility 03-07-2022 Mental Status Orientation Oriented x 4 [facility] 03-07-2022 Mental Status Orientation Asse ssment Oriented x 4 [facility] 03-07-2022 Mental Status [facility] Clinical Notes 03-07-2022 Note Date & Type Note Facility 03-07-2022 Hospital Discharg e instructions Patient Education 03/07/2022 15:27:49 Total Hip Replacement, Anterior, Care After Total Hip Replacement, Anterior, Care After This sheet gives you information about how to care for yourself after your procedure. Your health care provider may also give you more specific instructions. If you have problems or questions, contact your health care provider. What can I expect after the procedure? After the procedure, it is common to have: Pain. Stiffness. Discomfort. Follow these instructions at home: Medicines Take pymk-hpe-igrzvdq and prescription medicines only as told by your health care provider. If you were prescribed a blood thinner (anticoagulant) to help prevent blood clots, take it as told by your health care provider. Incision care Follow instructions from your health care provider about how to take care of your incision. Make sure you: ?Wash your hands with soap and water before you change your bandage (dressing). If soap and water are not available, use hand windows and doors installer. ?Change your dressing as told by your health care provider. ?Leave stitches (sutures), skin glue, or adhesive strips in place. These skin closures may need to stay in place for 2 weeks or longer. If adhesive strip edges start to loosen and curl up, you may trim the loose edges. Do not remove adhesive strips completely unless your health care provider tells you to do that. Check your incision area every day for signs of infection. Check for: ?Redness, swelling, or pain. ?Fluid or blood. ?Warmth. ?Pus or a bad smell. Bathing Do not take baths, swim, or use a hot tub until your health care provider approves. Ask your health care provider if you may take showers. You may only be allowed to take sponge baths. Keep the dressing dry until your health care provider says it can be removed. Managing pain, stiffness, and swelling If directed, put ice on the affected area. ?Put ice in a plastic bag. ?Place a towel between your skin and the bag. ?Leave the ice on for 20 minutes, 2 3 times a day. Move your toes often to avoid stiffness and to lessen swelling. Raise (elevate) your leg above the level of your heart while you are sitting or lying down. Activity Rest as told by your health care provider. Avoid sitting for a long time without moving. Get up to take short walks every 1 2 hours. This is important to improve blood flow and breathing. Ask for help if you feel weak or unsteady. Do exercises as told by your health care provider or physical therapist. Follow instructions from your health care provider about using a walker, crutches, or a cane. ?You may use your legs to support (bear) your body weight as told by your health care provider. Follow instructions about how much weight you may safely support on your affected leg (weight-bearing restrictions). ?A physical therapist may show you how to get out of a bed and chair and how to go up and down stairs. You will first do this with a walker, crutches, or a cane and then without any of these devices. ?Once you are able to walk without a limp, you may stop using a walker, crutches, or cane. Return to your normal activities as told by your health care provider. Ask your health care provider what activities are safe for you. Safety To help prevent falls, keep floors clear of objects you may trip over, and place items that you may need within easy reach. Wear an apron or tool belt with pockets for carrying objects. This leaves your hands free to help with your balance. Driving Do not drive or use heavy machinery while taking prescription pain medicine. Ask your health care provider when it is safe to drive. General instructions Wear compression stockings as told by your health care provider. These stockings help to prevent blood clots and reduce swelling in your legs. Continue with breathing exercises as directed by your health care provider. This helps prevent lung infection. If you are taking prescription pain medicine, take actions to prevent or treat constipation. Your health care provider may recommend that you: ?Drink enough fluid to keep your urine pale yellow. ?Eat foods that are high in fiber, such as fresh fruits and vegetables, whole grains, and beans. ?Limit foods that are high in fat and processed sugars, such as fried or sweet foods. ?Take an viit-elc-kpzzwxo or prescription medicine for constipation. Do not use any products that contain nicotine or tobacco, such as cigarettes and e-cigarettes. These can delay bone healing. If you need help quitting, ask your health care provider. Tell your health care provider if you plan to have dental work. Also: ?Tell your dentist about your joint replacement. ?Ask your health care provider if there are any special instructions you need to follow before having dental care and routine cleanings. Keep all follow-up visits as told by your health care provider. This is important. Contact a health care provider if: You have a fever or chills. You have a cough or feel short of breath. Your medicine is not controlling your pain. You have redness, swelling, or pain around your incision. You have fluid or blood coming from your incision. Your incision feels warm to the touch. You have pus or a bad smell coming from your incision. Get help right away if you have: Severe pain. Trouble breathing. Chest pain. Redness, swelling, pain, and warmth in your calf or leg. Summary Follow instructions from your health care provider about how to take care of your incision. Do not take baths, swim, or use a hot tub until your health care provider approves. Use crutches, a walker, or a cane as told by your health care provider. If you were prescribed a blood thinner (anticoagulant) to help prevent blood clots, take it as told by your health care provider. This information is not intended to replace advice given to you by your health care provider. Make sure you discuss any questions you have with your health care provider. Document Released: 07/07/2018 Document Revised: 08/01/2019 Document Reviewed: 07/07/2018 [employer] Patient Education 2020 [employer]™. 03/07/2022 15:27:45 Monitored Anesthesia Care, Care After Monitored Anesthesia Care, Care After These instructions provide you with information about caring for yourself after your procedure. Your health care provider may also give you more specific instructions. Your treatment has been planned according to current medical practices, but problems sometimes occur. Call your health care provider if you have any problems or questions after your procedure. What can I expect after the procedure? After your procedure, you may: Feel sleepy for several hours. Feel clumsy and have poor balance for several hours. Feel forgetful about what happened after the procedure. Have poor judgment for several hours. Feel nauseous or vomit. Have a sore throat if you had a breathing tube during the procedure. Follow these instructions at home: For at least 24 hours after the procedure: Have a responsible adult stay with you. It is important to have someone help care for you until you are awake and alert. Rest as needed. Do not: ?Participate in activities in which you could fall or become injured. ?Drive. ?Use heavy machinery. ?Drink alcohol. ?Take sleeping pills or medicines that cause drowsiness. ?Make important decisions or sign legal documents. ?Take care of children on your own. Eating and drinking Follow the diet that is recommended by your health care provider. If you vomit, drink water, juice, or soup when you can drink without vomiting. Make sure you have little or no nausea before eating solid foods. General instructions Take sulk-rfz-vtrtngh and prescription medicines only as told by your health care provider. If you have sleep apnea, surgery and certain medicines can increase your risk for breathing problems. Follow instructions from your health care provider about wearing your sleep device: ?Anytime you are sleeping, including during daytime naps. ?While taking prescription pain medicines, sleeping medicines, or medicines that make you drowsy. If you smoke, do not smoke without supervision. Keep all follow-up visits as told by your health care provider. This is important. Contact a health care provider if: You keep feeling nauseous or you keep vomiting. You feel light-headed. You develop a rash. You have a fever. Get help right away if: You have trouble breathing. Summary For several hours after your procedure, you may feel sleepy and have poor judgment. Have a responsible adult stay with you for at least 24 hours or until you are awake and alert. This information is not intended to replace advice given to you by your health care provider. Make sure you discuss any questions you have with your health care provider. Document Released: 07/13/2016 Document Revised: 06/21/2018 Document Reviewed: 07/13/2016 [employer] Patient Education 2020 [employer]™. 03/07/2022 15:27:43 Spinal Anesthesia and Epidural Anesthesia, Care After Spinal Anesthesia and Epidural Anesthesia, Care After These instructions provide you with information about caring for yourself after your procedure. Your health care provider may also give you more specific instructions. Your treatment has been planned according to current medical practices, but problems sometimes occur. Call your health care provider if you have any problems or questions after your procedure. What can I expect after the procedure? After the procedure, it is common to have: Sleepiness. Nausea. Vomiting. Numbness or tingling in your legs. Trouble urinating. Itching. Follow these instructions at home: For at least 24 hours after the procedure: Have a responsible adult stay with you. It is important to have someone help care for you until you are awake and alert. Rest as needed. Do not: ?Participate in activities in which you could fall or become injured. ?Drive. ?Use heavy machinery. ?Drink alcohol. ?Take sleeping pills or medicines that cause drowsiness. ?Make important decisions or sign legal documents. ?Take care of children on your own. Eating and drinking If you vomit, drink water, juice, or soup when you can drink without vomiting. Drink enough fluid to keep your urine pale yellow. Make sure you have little or no nausea before eating solid foods. Follow the diet recommended by your health care provider. General instructions Return to your normal activities as told by your health care provider. Ask your health care provider what activities are safe for you. Take kzan-guf-qvyjpok and prescription medicines only as told by your health care provider. If you have sleep apnea, surgery and certain medicines can increase your risk for breathing problems. Follow instructions from your health care provider about wearing your sleep device: ?Anytime you are sleeping, including during daytime naps. ?While taking prescription pain medicines, sleeping medicines, or medicines that make you drowsy. Do not use any products that contain nicotine or tobacco, such as cigarettes and e-cigarettes. If you need help quitting, ask your health care provider. If you smoke, do not smoke without supervision. Keep all follow-up visits as told by your health care provider. This is important. Contact a health care provider if: You have nausea and vomiting that continue the day after anesthetic medicine was given. You develop a rash. Get help right away if: You have a fever. You have a persistent or severe headache. You develop blurred or double vision. You develop dizziness or feel light-headed. You faint. You have weakness, numbness, or tingling in your arms or legs. You have difficulty breathing. You are unable to pass urine. Summary After your procedure, it is common to have sleepiness, nausea, vomiting, and trouble passing urine. For at least 24 hours after the procedure, do not do things that will make you more likely to get hurt. Also, do not drive, use heavy machinery, or make important decisions. Do not eat solid foods until you have no nausea and no vomiting. Do not use products that contain nicotine or tobacco. Get help if you have a fever, persistent headache, blurred or double vision, weakness or numbness in arms and legs, or difficulty breathing or passing urine. This information is not intended to replace advice given to you by your health care provider. Make sure you discuss any questions you have with your health care provider. Document Released: 06/12/2004 Document Revised: 09/12/2019 Document Reviewed: 07/14/2016 [employer] Patient Education 2020 [employer]™. Follow Up Care 01/29/2022 07:45:59 With:NOHEMY HAYS Address: [address] [place], [place] [address] [address] [place] [place] [facility] [place] [address]- [phone] Business (1) When: Unknown [facility] man[facility] Watkins 03-07-2022 Summary of episod e note Discharge Instructions Thank you for allowing [facility] to assist you with your healthcare needs. The following is important discharge information regarding your hospital visit. 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 What When Instructions Last Dose Unchanged Misc Medication Unchanged Misc Medication Please take this list to your next doctor s visit. Bring all medications you take, including over the counter medications, herbals and other supplements with you to your doctor s visit. Patients and families are reminded to discard old lists and to update any records with all medication providers or retail pharmacies. Education Materials Total Hip Replacement, Anterior, Care After This sheet gives you information about how to care for yourself after your procedure. Your health care provider may also give you more specific instructions. If you have problems or questions, contact your health care provider. What can I expect after the procedure? After the procedure, it is common to have: Pain. Stiffness. Discomfort. Follow these instructions at home: Medicines Take fqlc-bsh-hzqdjho and prescription medicines only as told by your health care provider. If you were prescribed a blood thinner (anticoagulant) to help prevent blood clots, take it as told by your health care provider. Incision care Follow instructions from your health care provider about how to take care of your incision. Make sure you: ? Wash your hands with soap and water before you change your bandage (dressing). If soap and water are not available, use hand windows and doors installer. ? Change your dressing as told by your health care provider. ? Leave stitches (sutures), skin glue, or adhesive strips in place. These skin closures may need to stay in place for 2 weeks or longer. If adhesive strip edges start to loosen and curl up, you may trim the loose edges. Do not remove adhesive strips completely unless your health care provider tells you to do that. Check your incision area every day for signs of infection. Check for: ? Redness, swelling, or pain. ? Fluid or blood. ? Warmth. ? Pus or a bad smell. Bathing Do not take baths, swim, or use a hot tub until your health care provider approves. Ask your health care provider if you may take showers. You may only be allowed to take sponge baths. Keep the dressing dry until your health care provider says it can be removed. Managing pain, stiffness, and swelling If directed, put ice on the affected area. ? Put ice in a plastic bag. ? Place a towel between your skin and the bag. ? Leave the ice on for 20 minutes, 2 3 times a day. Move your toes often to avoid stiffness and to lessen swelling. Raise (elevate) your leg above the level of your heart while you are sitting or lying down. Activity Rest as told by your health care provider. Avoid sitting for a long time without moving. Get up to take short walks every 1 2 hours. This is important to improve blood flow and breathing. Ask for help if you feel weak or unsteady. Do exercises as told by your health care provider or physical therapist. Follow instructions from your health care provider about using a walker, crutches, or a cane. ? You may use your legs to support (bear) your body weight as told by your health care provider. Follow instructions about how much weight you may safely support on your affected leg (weight-bearing restrictions). ? A physical therapist may show you how to get out of a bed and chair and how to go up and down stairs. You will first do this with a walker, crutches, or a cane and then without any of these devices. ? Once you are able to walk without a limp, you may stop using a walker, crutches, or cane. Return to your normal activities as told by your health care provider. Ask your health care provider what activities are safe for you. Safety To help prevent falls, keep floors clear of objects you may trip over, and place items that you may need within easy reach. Wear an apron or tool belt with pockets for carrying objects. This leaves your hands free to help with your balance. Driving Do not drive or use heavy machinery while taking prescription pain medicine. Ask your health care provider when it is safe to drive. General instructions Wear compression stockings as told by your health care provider. These stockings help to prevent blood clots and reduce swelling in your legs. Continue with breathing exercises as directed by your health care provider. This helps prevent lung infection. If you are taking prescription pain medicine, take actions to prevent or treat constipation. Your health care provider may recommend that you: ? Drink enough fluid to keep your urine pale yellow. ? Eat foods that are high in fiber, such as fresh fruits and vegetables, whole grains, and beans. ? Limit foods that are high in fat and processed sugars, such as fried or sweet foods. ? Take an msqx-lpe-qfvidxh or prescription medicine for constipation. Do not use any products that contain nicotine or tobacco, such as cigarettes and e-cigarettes. These can delay bone healing. If you need help quitting, ask your health care provider. Tell your health care provider if you plan to have dental work. Also: ? Tell your dentist about your joint replacement. ? Ask your health care provider if there are any special instructions you need to follow before having dental care and routine cleanings. Keep all follow-up visits as told by your health care provider. This is important. Contact a health care provider if: You have a fever or chills. You have a cough or feel short of breath. Your medicine is not controlling your pain. You have redness, swelling, or pain around your incision. You have fluid or blood coming from your incision. Your incision feels warm to the touch. You have pus or a bad smell coming from your incision. Get help right away if you have: Severe pain. Trouble breathing. Chest pain. Redness, swelling, pain, and warmth in your calf or leg. Summary Follow instructions from your health care provider about how to take care of your incision. Do not take baths, swim, or use a hot tub until your health care provider approves. Use crutches, a walker, or a cane as told by your health care provider. If you were prescribed a blood thinner (anticoagulant) to help prevent blood clots, take it as told by your health care provider. This information is not intended to replace advice given to you by your health care provider. Make sure you discuss any questions you have with your health care provider. Document Released: 07/07/2018 Document Revised: 08/01/2019 Document Reviewed: 07/07/2018 [employer] Patient Education 2020 [employer]™. Monitored Anesthesia Care, Care After These instructions provide you with information about caring for yourself after your procedure. Your health care provider may also give you more specific instructions. Your treatment has been planned according to current medical practices, but problems sometimes occur. Call your health care provider if you have any problems or questions after your procedure. What can I expect after the procedure? After your procedure, you may: Feel sleepy for several hours. Feel clumsy and have poor balance for several hours. Feel forgetful about what happened after the procedure. Have poor judgment for several hours. Feel nauseous or vomit. Have a sore throat if you had a breathing tube during the procedure. Follow these instructions at home: For at least 24 hours after the procedure: Have a responsible adult stay with you. It is important to have someone help care for you until you are awake and alert. Rest as needed. Do not: ? Participate in activities in which you could fall or become injured. ? Drive. ? Use heavy machinery. ? Drink alcohol. ? Take sleeping pills or medicines that cause drowsiness. ? Make important decisions or sign legal documents. ? Take care of children on your own. Eating and drinking Follow the diet that is recommended by your health care provider. If you vomit, drink water, juice, or soup when you can drink without vomiting. Make sure you have little or no nausea before eating solid foods. General instructions Take zjct-edl-odebsws and prescription medicines only as told by your health care provider. If you have sleep apnea, surgery and certain medicines can increase your risk for breathing problems. Follow instructions from your health care provider about wearing your sleep device: ? Anytime you are sleeping, including during daytime naps. ? While taking prescription pain medicines, sleeping medicines, or medicines that make you drowsy. If you smoke, do not smoke without supervision. Keep all follow-up visits as told by your health care provider. This is important. Contact a health care provider if: You keep feeling nauseous or you keep vomiting. You feel light-headed. You develop a rash. You have a fever. Get help right away if: You have trouble breathing. Summary For several hours after your procedure, you may feel sleepy and have poor judgment. Have a responsible adult stay with you for at least 24 hours or until you are awake and alert. This information is not intended to replace advice given to you by your health care provider. Make sure you discuss any questions you have with your health care provider. Document Released: 07/13/2016 Document Revised: 06/21/2018 Document Reviewed: 07/13/2016 [employer] Patient Education 2020 [employer] Spinal Anesthesia and Epidural Anesthesia, Care After These instructions provide you with information about caring for yourself after your procedure. Your health care provider may also give you more specific instructions. Your treatment has been planned according to current medical practices, but problems sometimes occur. Call your health care provider if you have any problems or questions after your procedure. What can I expect after the procedure? After the procedure, it is common to have: Sleepiness. Nausea. Vomiting. Numbness or tingling in your legs. Trouble urinating. Itching. Follow these instructions at home: For at least 24 hours after the procedure: Have a responsible adult stay with you. It is important to have someone help care for you until you are awake and alert. Rest as needed. Do not: ? Participate in activities in which you could fall or become injured. ? Drive. ? Use heavy machinery. ? Drink alcohol. ? Take sleeping pills or medicines that cause drowsiness. ? Make important decisions or sign legal documents. ? Take care of children on your own. Eating and drinking If you vomit, drink water, juice, or soup when you can drink without vomiting. Drink enough fluid to keep your urine pale yellow. Make sure you have little or no nausea before eating solid foods. Follow the diet recommended by your health care provider. General instructions Return to your normal activities as told by your health care provider. Ask your health care provider what activities are safe for you. Take lfrw-hvx-wqscdlm and prescription medicines only as told by your health care provider. If you have sleep apnea, surgery and certain medicines can increase your risk for breathing problems. Follow instructions from your health care provider about wearing your sleep device: ? Anytime you are sleeping, including during daytime naps. ? While taking prescription pain medicines, sleeping medicines, or medicines that make you drowsy. Do not use any products that contain nicotine or tobacco, such as cigarettes and e-cigarettes. If you need help quitting, ask your health care provider. If you smoke, do not smoke without supervision. Keep all follow-up visits as told by your health care provider. This is important. Contact a health care provider if: You have nausea and vomiting that continue the day after anesthetic medicine was given. You develop a rash. Get help right away if: You have a fever. You have a persistent or severe headache. You develop blurred or double vision. You develop dizziness or feel light-headed. You faint. You have weakness, numbness, or tingling in your arms or legs. You have difficulty breathing. You are unable to pass urine. Summary After your procedure, it is common to have sleepiness, nausea, vomiting, and trouble passing urine. For at least 24 hours after the procedure, do not do things that will make you more likely to get hurt. Also, do not drive, use heavy machinery, or make important decisions. Do not eat solid foods until you have no nausea and no vomiting. Do not use products that contain nicotine or tobacco. Get help if you have a fever, persistent headache, blurred or double vision, weakness or numbness in arms and legs, or difficulty breathing or passing urine. This information is not intended to replace advice given to you by your health care provider. Make sure you discuss any questions you have with your health care provider. Document Released: 06/12/2004 Document Revised: 09/12/2019 Document Reviewed: 07/14/2016 [employer] Patient Education 2020 [employer]™. Additional Information VACCINATE! IT SAVES LIVES! Members of the community who have not yet received the COVID-19 vaccine and would like to receive it can visit one of [facility] vaccine clinics. There are many vaccine clinic locations within the [facility]. For locations and available times, please visit [email or web address] It is important to note that some COVID mobile vaccine clinics are held outdoors and may be canceled in rainy or stormy conditions. To learn more about pediatric vaccinations (ages 5-11), we invite you to visit the [facility] webpage. [email or web address] To learn more about the COVID-19 vaccine, we invite you to visit the [facility] website for a list of frequently asked questions. [email or web address] [facility] Patient Portal Access Instructions: Stay connected with your healthcare team and access your personal medical information anytime with the [facility] Patient Portal.If you would like a full copy of your medical records, please contact the [facility] Medical Records Department, Thursday through Thursday between 8a.m. and 4:30p.m. Please follow the directions below to access the portal: 1.Access the email account you provided upon registration to the [facility].2.Look for an invitation email from [facility].3.Open the email and access the invitation link: Accept Invitation to [facility]4.Fill in the required adams to create your account. Sign into [email or web address] with your username and password that you created in the above steps to stay up to date. You can then view a summary of results, a summary of your visits, and the ability to download your summaries to your computer or send the information securely to a physician. Remember that your healthcare information is confidential, so carefully consider who you will allow to register on the [facility] Patient Portal for access to your information. You can also access the [facility] Patient Portal on the [employer]. Simply click on Health Records under Health Data and then click on the [employer] logo. HOW TO SAFELY DISPOSE OF PRESCRIPTION MEDICATIONS Please use one of the following methods to safely dispose of your unused medications. 1.Use a drug disposal kit: the drug disposal pouch allows you to safely discard your old and unused drugs. Ask your nurse to give you one when you are discharged.2.Visit a local take-back location: Many local pharmacies and police departments have programs that collect old and unwanted prescription drugs. Call your local pharmacy or go to http://bit.ly/8P5Rq8w to find one close to you.3.Make use of household items: Use cat litter or old coffee grounds to dispose medications if other options are not available. Mix your drugs with these household products, seal them in an airtight container and throw it into the garbage. Call [facility]: [phone] to be sure your drugs can be disposed of in this way. Some medicines may require a different approach.4.Never flush your medications down the toilet. IF YOU HAVE BEEN PRESCRIBED AN OPIOID FOR PAIN If you have been prescribed an opioid (such as hydrocodone, oxycodone or morphine), it is critical to understand the possible side effects and risks of opioid pain medications. Even when taken as directed, opioids can have several side effects including: Tolerance, meaning you might need to take more of a medication for the same pain relief. Nausea, vomiting and/or constipation. Sleepiness, dizziness, dry mouth, confusion, depression or itching. Physical dependence, meaning you have withdrawal symptoms when a medication is stopped, can develop within a few days. KNOW YOUR RESPONSIBILITIES It is important to know exactly how much and how often to take the opioid pain medications you are prescribed. Never take opioids in higher amounts or more often than prescribed. Do not combine opioids with alcohol or other drugs that cause drowsiness, such as benzodiazepines, also known as benzos, including diazepam and alprazolam, muscle relaxants or sleep aids. Never sell or share prescription opioids. This is illegal. Store opioids in a secure place and out of reach of others (including children, family, friends and visitors). The last page of this document has been signed and retained as a CHART COPY. Signatures Patient Education Materials Total Hip Replacement, Anterior, Care After Monitored Anesthesia Care, Care After Spinal Anesthesia and Epidural Anesthesia, Care After Medication Leaflets My discharge plan and instructions have been reviewed and explained to me and I,JEFFREY QUARLES understand my current condition and have read and understand these discharge instructions. I have received a written copy of the plan/instructions. If I have questions, I am aware that I should contact my doctor. 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 03-07-2022 Note ORIGINAL EXAMINATION: 1 x-ray view of the pelvis and 2 XRAY VIEWS OF THE LEFT HIP.03/07/2022 2:12 pm COMPARISON: None. HISTORY: ORDERING SYSTEM PROVIDED HISTORY: Reason for Exam: Status Post Arthroplasty FINDINGS: The pelvic ring is intact. No acute fracture or dislocation is identified. Degenerative changes seen of the spine. Left hip arthroplasty is intact.. Air seen in the soft tissues of the left hip IMPRESSION: Anatomic alignment of the new left hip arthroplasty. Interpreted by: Chema Kerr MD Preliminary Report By: Chema Kerr MD Electronically signed By Chema Kerr MD Dictated Date: 03/07/2022 2:21:28 PM Prelim Date: 03/07/2022 2:22:50 PM Sign Date: 03/07/2022 2:22:50 PM Ordering Provider: [facility] 03-07-2022 Note ORIGINAL EXAMINATION: 1 x-ray view of the pelvis and 2 XRAY VIEWS OF THE LEFT HIP.03/07/2022 2:12 pm COMPARISON: None. HISTORY: ORDERING SYSTEM PROVIDED HISTORY: Reason for Exam: Status Post Arthroplasty FINDINGS: The pelvic ring is intact. No acute fracture or dislocation is identified. Degenerative changes seen of the spine. Left hip arthroplasty is intact.. Air seen in the soft tissues of the left hip IMPRESSION: Anatomic alignment of the new left hip arthroplasty. Interpreted by: Chema Kerr MD Preliminary Report By: Chema Kerr MD Electronically signed By Chema Kerr MD Dictated Date: 03/07/2022 2:21:28 PM Prelim Date: 03/07/2022 2:22:50 PM Sign Date: 03/07/2022 2:22:50 PM Ordering Provider: [facility] 03-07-2022 Anesthesiology Consult note Patient: JEFFREY QUARLES Age: 62 years Sex: Female : 1960 Associated Diagnoses: None Author: TIMO CEJA APRN-YUE Assessment Postanesthesia assessment Vitals: Reviewed Results: Vital signs from flowsheet : Vital Signs(Date Range: 03/06/2022 0:00 EST - 03/07/2022 13:56 EST) . Mental status: at preoperative baseline. Respiratory function: lungs are clear to auscultation. Respiratory support: none. CV function: Normal rate. Cardiovascular support: none. Pain. Nausea status: denies nausea. Postoperative hydration status: within normal limits. Digitally Signed by TIMO CEJA on 03/07/2022 01:[address] [facility] 03-07-2022 Note ORIGINAL Images acquired, not reported on this accession number. [facility] 03-07-2022 Note ORIGINAL Images acquired, not reported on this accession number. [facility] 03-07-2022 Anesthesiology Consult note Patient: JEFFREY QUARLES Age: 62 years Sex: Female : 1960 Associated Diagnoses: None Author: TIMO CEJA Preoperative Information Time of last food or liquid consumption: 03/07/2022 00:00:00 Anesthesia history Patient's history: negative. Family's history: negative. Health Status Allergies: Allergic Reactions (Selected) No Known Medication Allergies, Allergies (1) ActiveReaction No Known Medication AllergiesNone Documented Current medications: (Selected) Inpatient Medications Ordered Betadine 10% topical solution: 17.5 mL, mL/hr, Topical (INT), PREOP pharm Bicitra: 30 mL, Oral, PREOP pharm Bolus LR 1000 mL: 1,000 mL, IV Bolus, PREOP pharm CeleBREX: 400 mg, 2 cap(s), Oral, PREOP pharm Decadron: 10 mg, 1 mL, IV Push, AsDirected Kefzol: 2 gram(s), 200 mL/hr, IV Piggyback, PREOP pharm LR 1,000 mL: 125 mL/hr, Intravenous, Stop: 03/07/22 23:59:00 EST Naropin 100 mg + Toradol 15 mg + EPINEPHrine 1 mg/mL injectable solution 0.3 mg + morphine 2.5 mg...: 100 mg, 20 mL, mL/hr, Other, PREOP pharm Naropin 100 mg + Toradol 15 mg + EPINEPHrine 1 mg/mL injectable solution 0.3 mg + morphine 2.5 mg...: 100 mg, 20 mL, mL/hr, Other, PREOP pharm Pepcid IV: 20 mg, 2 mL, IV Push, PREOP pharm Tylenol: 1,000 mg, 2 tab(s), Oral, PREOP pharm tranexamic acid 1 g / 100 mL 0.7% NaCl PMX: 1 gram(s), 100 mL, 300 mL/hr, IV Piggyback, AsDirected tranexamic acid 1 g / 100 mL 0.7% NaCl PMX: 1 gram(s), 100 mL, 300 mL/hr, IV Piggyback, AsDirected Documented Medications Documented Misc Medication: 0 Refill(s) Misc Medication: 0 Refill(s), Medications (13) Active Scheduled: (12) acetaminophen 500 mg Tablet 1,000 mg 2 tab(s), Oral, PREOP pharm ceFAZolin 2 gram(s), IV Piggyback, PREOP pharm celecoxib 200 mg capsule 400 mg 2 cap(s), Oral, PREOP pharm citric acid-sodium citrate 334 mg-500 mg/5 mL (30 mL) Linda UD 30 mL, Oral, PREOP pharm dexamethasone 10 mg/mL (1mL) SDV 10 mg 1 mL, IV Push, AsDirected famotidine 20 mg/2 mL vial 20 mg 2 mL, IV Push, PREOP pharm Lactated Ringers Injection 1000 mL * Bolus * 1,000 mL, IV Bolus, PREOP pharm povidone iodine topical 17.5 mL, Topical (INT), PREOP pharm ropivacaine 100 mg + ketorolac 15 mg + epinephrine 0.3 mg + morphine 2.5 mg 100 mg 20 mL, Other, PREOP pharm ropivacaine 100 mg + ketorolac 15 mg + epinephrine 0.3 mg + morphine 2.5 mg 100 mg 20 mL, Other, PREOP pharm tranexamic acid PMX 1 gram(s) 100 mL, IV Piggyback, AsDirected tranexamic acid PMX 1 gram(s) 100 mL, IV Piggyback, AsDirected Continuous: (1) Lactated Ringers 1,000 mL 1,000 mL, Intravenous, 125 mL/hr PRN: (0) Problem list: Active Problems (2) Osteoarthritis Osteoporosis Histories Past Medical History: No active or resolved past medical history items have been selected or recorded. Family History: Diabetes mellitus type 2 Grandparent Father Stroke Father Procedure history: Bunionectomy ([id number]). Comments: 02/20/2022 10:09 Danyelle Hu RN RIGHT Hysteroscopy ([id number]). Dilation and curettage ([id number]). Colonoscopy ([id number]). Wrist joint ([id number]). Comments: 02/20/2022 10:09 Danyelle Hu RN RIGHT Social History Social & Psychosocial Habits Alcohol 02/20/2022 Use: Never Substance Abuse 02/20/2022 Use: Never Tobacco 02/20/2022 Tobacco Use: Never (less than 100 in l Home/Environment 03/07/2022 Domestic Concerns None Nutrition/Health 03/07/2022 Type of diet: Regular Appetite Good Eating Difficulties None Caffeine intake amount: none. . Physical Examination Vital Signs 03/07/2022 9:58 EST Temperature Temporal Artery 36.2 DegC Apical Heart Rate 65 bpm Respiratory Rate 17 br/min Systolic Blood Pressure Non-Invasive 123 mmHg Diastolic Blood Pressure Non-Invasive 63 mmHg Vital Signs(last 24 hrs) Last Charted Resp Rate 17 br/min (MAR 07 09:58) OFC828 mmHg (MAR 07 09:58) DBP63 mmHg (MAR 07 09:58) General: Alert and oriented. Airway: Normal temporomandibular joint mobility. Mallampati classification: II (soft palate, fauces, uvula visible). Head: Normocephalic. Dentition Evaluation: Intact. Neck: Supple. Respiratory: Lungs are clear to auscultation. Cardiovascular: Normal rate. Heart Sounds: Normal. Gastrointestinal: Soft. Musculoskeletal Normal range of motion. Integumentary: Intact. Neurologic: Alert. Review / Management Results review: No qualifying data available , Lab results 03/07/2022 9:58 EST Temperature Temporal Artery 36.2 DegC Apical Heart Rate 65 bpm Respiratory Rate 17 br/min Systolic Blood Pressure Non-Invasive 123 mmHg Diastolic Blood Pressure Non-Invasive 63 mmHg Heart Sounds ICU S1S2 Heart Rhythm Regular Oxygen Therapy Room air Oxygen Saturation 100 % Abdomen Description Non-distended, Soft Swallowing Disorder None Bowel Sounds All Quadrants Present Urinary Elimination Voiding, no difficulties Skin Temperature Warm Skin Description Sedillo, Normal for ethnicity, Dry Skin Integrity Intact Skin Moisture General Dry IV Present Present Extremity Movement Equal Characteristics of Speech Clear Level of Consciousness Alert Sensation All Extremities Intact Affect/Behavior Appropriate Orientation Oriented x 4 Infectious Disease Symptoms Patient states no symptoms Allergies Yes Project Manager Process Development On Yes Consent Form Signed Yes Patient Dressed In Hospital gown Pre-op Preparation Glasses removed CHG Preoperative Wash/Wipe Night before procedure, Day of procedure Preop Nasal Swab Povidone-Iodine CHG Skin Prep Completed for Eligible Surgery History & Physical Update On Chart Yes History & Physical On Chart Yes Obstructive Sleep Apnea Assess Completed Yes Orientation Assessment Oriented x 4 Safety Brochure Information Reviewed Unable to complete [facility] Video Viewed No Teaching Evaluation No further teaching needed Belongings Sent To Security Dress, Glasses, Shirt Activity Status ADL Ambulating in gonzales, Ambulating in room, Awake Assistive Device None NPO Status Maintained Standard Safety ID band on, Call device within reach, Bed in low position, Wheels locked, Visitor at bedside, Safety level maintained Patient ID Band on and Verified Yes Implants Verified Yes Pacemaker/AICD Verified Yes Anesthesia Consent Signed Yes Blood Consent Signed Yes Last Fluid Intake 03/06/2022 23:05 Last Food Intake 03/06/2022 20:30 Last Void 03/07/2022 10:07 Admission Note-Nursing Same Day Patient History (Modified) 03/07/2022 9:52 EST SN - Preop - CTm Pt in SDS Room 03/07/2022 9:52 . Assessment and Plan [employer] Society of Anesthesiologists (ASA) physical status classification: Class II. Anesthetic Preoperative Plan Premedication: intravenous. Anesthetic technique: Spinal. Regional: Spinal. Postoperative pain management: Per surgeon. Risks discussed: nausea, vomiting, headache, sore throat, dental injury, hypotension, allergic reaction, serious complications. Informed consent: signed by patient. Digitally Signed by TIMO CEJA on 03/07/2022 10:[address] [facility] Evaluation + Plan note Future Appointments [facility] Evaluation note No assessment inform ation available [facility] Work Phone: Hospital course Narrative No data available for this section [facility] Hospital Discharge instructions No data available for this section [facility] Chief Complaint and Reason for Visit Chief Complaint Amb Documentation SCREENING/POST PACHECO Summary Purpose Family History No Family History Records FoundNo Family History Records Found Advance Directives No Advanced Directives Records FoundNo Advanced Directives Records Found Additional Source Comments Goals (unrecognized section and content) Goals may be documented in a n alternate section No data available for this section No data available for this section Care Team (unrecognized sect ion and content) Care Team Personnel Name: SANDRINE NESS Member Role: Primary Care Physician Address: Address: [address] [place] [address]- Care Team Related Persons Name: LINDA QUARLES Address: [address] [place], [place] [id number] Care Team Personnel Name: SANDRINE NESS Member Role: Primary Care Physician Address: Address: [address] [place] [address] Care Team Related Persons Name: LINDA QUARLES Address: Home [address] [place] [address] INFORMATION SOURCE (unrecogn ized section and content) DATE CREATED AUTHOR 03/13/2022 [facility] ([place]) DATE CREATED AUTHOR AUTHOR'S HIPOLITOIZ ATION 12/13/2024 [facility] FOR RECORDS PERTAINING TO PATIENTS WHO ARE OR HAVE BEEN ENROLLED IN A CHEMICAL DEPENDENCY/SUBSTANCEABUSE PROGRAM, SOME INFORMATION MAY BE OMITTED. This clinical summary was aggregated from multiple sources. Caution should be exercised in using it in the provision of clinical care. This summary normalizes information from multiple sources, and as a consequence, information in this document may materially change the coding, format and clinical context of patient data. In addition, data may be omitted in some cases. CLINICAL DECISIONS SHOULD BE BASED ON THE PRIMARY CLINICAL RECORDS. [facility]. provides no warranty or guarantee of the accuracy or completeness of information in this document.
== END | disposition home or self-care (01) ==
LOC: BFHLAB 11:45
PROVIDERS: PCP Family Medicine; Visit Provider Family Medicine
DX: Z00.01 Encounter for general adult medical examination with abnormal findings (principal); Z83.3 Family history of diabetes mellitus; M81.0 Age-related osteoporosis without current pathological fracture
CPT/HCPCS: 36415; 80053; 80061; 82306; 83036; 84443; 85025

== ENCOUNTER → 2025-01-03 | Outpatient (CLI) | payer OTHER, SELFPAY ==
--- NOTE | 2025-01-03 14:23 | BD_ITS ---
PROCEDURE: DEXA BONE DENSITY STUDY 01/03/2025 REASON FOR EXAM: F, age 64 y/o . Postmenopausal screening. TECHNIQUE: Procedure Code: BDDBD Modality: DX Procedure: DEXA BONE DENSITY STUDY COMPARISON: 2021 FINDINGS: BMD and T-SCORES Lumbar spine: 0.751 g/cm2, T-score negative 2.7 Levels: L1 through L4 Change from prior: Decrease of 3.6%. Right femoral neck: 0.492 g/cm2, T-score -3.2 Femoral neck comparison data not recommended for monitoring change. Prior T-score Right total hip: 0.585 g/cm2, T-score -2.9 Change from prior: Decrease of 10%. The World Health Organization has defined the following categories based on bone density: Normal bone density: T-score equal to or greater than -1.0 Osteopenia: T-score between -1.0 and -2.5 Osteoporosis: T-score equal to or less than -2.5 FRAX (or Comparable) Fracture Risk Assessment: 10 Year Probability of Fracture: Major Osteoporotic Fracture: 27% Hip Fracture: 8.7% (Note: FRAX is not to be reported in setting of normal range bone density, osteoporosis on DEXA, known history of osteoporosis, prior osteoporotic hip or vertebral fracture, or for any patient undergoing pharmacological treatment for bone loss.) The National Osteoporosis Foundation (NOF) recommends pharmacological treatment for patients with a FRAX 10-year risk of 3% or higher for a hip fracture, or 20% or higher for a major osteoporotic fracture, to prevent osteoporosis and reduce fracture risk. The patient does meet the pharmacological treatment recommendations for prevention of osteoporosis. BD/Dexa Bone Density Study IMPRESSION: OSTEOPOROSIS. Recommend follow-up as clinically warranted. Reading Location: [id number]
--- NOTE | 2025-01-03 14:23 | BI_ITS ---
EXAM: SCRN MAMM (CAD)W/COLIN BILAT DATE: 01/03/2025 CLINICAL HISTORY: F, Age 64 y/o , SCREENING Routine screening TECHNIQUE: Procedure Code: BISMWCADBTOM Modality: MG Procedure: SCRN MAMM (CAD)W/COLIN BILAT COMPARISON: None FINDINGS: TISSUE DENSITY: There are scattered areas of fibroglandular density. Bilateral Breast Mammographic Findings: No significant masses, calcifications or other abnormalities are identified. BI/SCRN MAMM (CAD)W/COLIN BILAT IMPRESSION: Negative screening mammogram, no suspicious findings OVERALL FINAL ASSESSMENT BI-RADS 1: NEGATIVE. RECOMMENDATION: Routine annual follow-up in 1 Year Additional Recommendation none A letter with findings and recommendations will be mailed to the patient. Reading Location: [id number]
== END | disposition home or self-care (01) ==
PROVIDERS: PCP Family Medicine; Referring Provider Family Medicine; Visit Provider Family Medicine
DX: Z12.31 Encounter for screening mammogram for malignant neoplasm of breast (principal); Z78.0 Asymptomatic menopausal state; M81.0 Age-related osteoporosis without current pathological fracture
CPT/HCPCS: 77063; 77067; 77080

== ENCOUNTER → 2025-01-24 | Outpatient (CLI) | payer OTHER, SELFPAY ==
--- OUTSIDE RECORDS SUMMARY | 2025-01-24 15:58 | XMS RPT_ITS | CCD ---
Author Organization [facility] Inform ion Partnership [facility] Care Team Providers Care Switchboard Operator Supervisor Name Role Phone Dr. Fabienne Ling Primary Care Provider [phone] Kacie Ravi Attending Provider Unavailable SANDRINE NESS Primary Care Physician NOHEMY HAYS MD Attending Unavailable SANDRINE NESS Primary Care Unavailable NOHEMY HAYS MD Attending Unavailable SANDRINE NESS Primary Care Unavailable Dr. Fabienne Ling DO Primary Care Physician Dr. Sandrine Ness MD Attending Physician Fabienne Ling Primary Care Unavailable Sandrine Ness Attending Unavailable Sandrine Ness Primary Care Unavailable Sandrine Ness Attending Unavailable Sandrine Ness Referring Unavailable Sandrine Ness Attending Unavailable Fabienne Ling Primary Care Unavailable Medications Current Medications Medication Drug Class(es) Dates Sig (Normalized) Sig (Original) 8 hr acetaminophen 650 mg extended release oral tablet (1 source) Start: 09-20-2021 take 1 tablet by mouth every twelve hours as needed for pain aspirin 325 mg oral tablet (1 source) Platelet Aggregation Inhibitor, Nonsteroidal Anti-inflammatory Drug Start: 09-20-2021 take 1 tablet by mouth once daily Misc Medication (4 sources) Start: 02-20-2022 Misc Medication 0 Refill(s) Start Date: 02/20/22 Status: Ordered Morris-3 Fatty Acids-Vitamin E (Fish Oil) 1,000 mg Capsule (1 source) Start: 09-20-2021 triamcinolone acetonide 5 mg/ml topical cream (2 sources) Corticosteroid Start: 07-22-2021 Triamcinolone Acetonide Active 1 APPLIC TOPICAL TWICE A DAY July 22, 2021 12:04pm Problems Problem Classification Problem Date Documented Date Episodic/Chronic Hemorrhoids (2 sources) Hemorrhoids; Translations: [Unspecified hemorrhoids] 07-22-2021 Episodic Osteoarthritis (2 sources) Osteoarthritis of left hip joint; Translations: [Unilateral primary osteoarthritis, left hip] 07-22-2021 Chronic Other inflammatory condition of skin (2 sources) Psoriasis; Translations: [Psoriasis, unspecified] 07-22-2021 Chronic Other screening for suspected conditions (not mental disorders or infectious disease) (3 sources) Patient encounter status; Translations: [Encounter for screening for malignant neoplasm of colon] Onset: 01-13-2025 07-22-2021 Episodic Spondylosis; intervertebral disc disorders; other back problems (2 sources) Lumbar spondylosis; Translations: [Spondylosis without myelopathy or radiculopathy, lumbar region] 07-22-2021 Chronic Results Test Name Value Interpretation Reference Range Facility Dexa Bone Density Studyon Dexa Bone Density Study [facility] Imaging Services [address] [place] [address] [id number] Dexa Bone Density Study MR#: [id number] Acct: [id number] Name: JEFFREY QUARLES Rep #: [id number] : 1960 F 64 From: Tristen Michael MD PCP: Dr. Sandrine Ness MD Status: REG CLI Study: Dexa Bone Density Study Date of Exam: 01/03/25 Exam# [id number] Ordering Dr: Sandrine Ness MD PROCEDURE: DEXA BONE DENSITY STUDY 01/03/2025 REASON FOR EXAM: F, age 64 y/o . Postmenopausal screening. TECHNIQUE: Procedure Code: BDDBD Modality: DX Procedure: DEXA BONE DENSITY STUDY COMPARISON: 2021 FINDINGS: BMD and T-SCORES Lumbar spine: 0.751 g/cm2, T-score negative 2.7 Levels: L1 through L4 Change from prior: Decrease of 3.6%. Right femoral neck: 0.492 g/cm2, T-score -3.2 Femoral neck comparison data not recommended for monitoring change. Prior T-score Right total hip: 0.585 g/cm2, T-score -2.9 Change from prior: Decrease of 10%. The World Health Organization has defined the following categories based on bone density: Normal bone density: T-score equal to or greater than -1.0 Osteopenia: T-score between -1.0 and -2.5 Osteoporosis: T-score equal to or less than -2.5 FRAX (or Comparable) Fracture Risk Assessment: 10 Year Probability of Fracture: Major Osteoporotic Fracture: 27% Hip Fracture: 8.7% (Note: FRAX is not to be reported in setting of normal range bone density, osteoporosis on DEXA, known history of osteoporosis, prior osteoporotic hip or vertebral fracture, or for any patient undergoing pharmacological treatment for bone loss.) The National Osteoporosis Foundation (NOF) recommends pharmacological treatment for patients with a FRAX 10-year risk of 3% or higher for a hip fracture, or 20% or higher for a major osteoporotic fracture, to prevent osteoporosis and reduce fracture risk. The patient does meet the pharmacological treatment recommendations for prevention of osteoporosis. BD/Dexa Bone Density Study IMPRESSION: OSTEOPOROSIS. Recommend follow-up as clinically warranted. Reading Location: [facility] CC: Dr. Sandrine Ness MD Corporate Vp Advertising & Online: Signed Normal [facility] SCRN MAMM (CAD)W/COLIN BILATo n 01-03-2025 SCRN MAMM (CAD)W/COLIN BILAT [facility] Imaging Services [address] [place] [address] [id number] SCRN MAMM (CAD)W/COLIN BILAT MR#: [id number] Acct: [id number] Name: JEFFREY QUARLES Rep #: [id number] : 1960 F 64 From: Tristen Michael MD PCP: Dr. Sandrine Ness MD Status: REG CLI Study: SCRN MAMM (CAD)W/COLIN BILAT Date of Exam: 12/07 Exam# [id number] Ordering Dr: Sandrine Ness MD EXAM: SCRN MAMM (CAD)W/COLIN BILAT DATE: 01/03/2025 CLINICAL HISTORY: F, Age 64 y/o , SCREENING Routine screening TECHNIQUE: Procedure Code: BISMWCADBTOM Modality: MG Procedure: SCRN MAMM (CAD)W/COLIN BILAT COMPARISON: None FINDINGS: TISSUE DENSITY: There are scattered areas of fibroglandular density. Bilateral Breast Mammographic Findings: No significant masses, calcifications or other abnormalities are identified. BI/SCRN MAMM (CAD)W/COLIN BILAT IMPRESSION: Negative screening mammogram, no suspicious findings OVERALL FINAL ASSESSMENT BI-RADS 1: NEGATIVE. RECOMMENDATION: Routine annual follow-up in 1 Year Additional Recommendation none A letter with findings and recommendations will be mailed to the patient. Reading Location: [facility] CC: Dr. Sandrine Ness MD [employer] & Online: Signed Normal [facility] Absolute lymphocyte countOrd ered By: Sandrine Ness on 12-13-2024 Lymphocytes Auto (Unsp spec) [#/Vol] 1.41 10*3/uL 0.83-4.51 [facility] Absolute neutrophil countOrd ered By: Sandrine Ness on 12-13-2024 Neutrophils (Bld) [#/Vol] 2.2 10*3/uL 2.0-7.7 [facility] Anion gap in Serum or Plasma Ordered By: Sandrine Ness on 12-13-2024 Anion gap [Moles/Vol] 10 mmol/L 5-15 [facility] Automated lymphocyte count a s percentage of total leukocytesOrdered By: Sandrine Ness on 12-13-2024 Lymphocytes/100 WBC Auto (Unsp spec) 33.8 % 19- [facility] BUN/creatinine ratioOrdered By: Sandrine Ness on 12-13-2024 Urea nitrogen/Creatinine [Mass ratio] 17.6 mg/mg 10-20 [facility] Basophil percentageOrdered B y: Sandrine Ness on 12-13-2024 Basophils/100 WBC (Bld) 0.5 % 0-1 [facility] Bilirubin, totalOrdered By: Sandrine Ness on 12-13-2024 Bilirubin [Mass/Vol] 0.59 mg/dL 0.00-1.30 [facility] CBC W/Diff, Automatedon 09-0 9-2025 Absolute Lymph 1.41 X10 3/uL Normal 0.83-4.51 [facility] Comment on above: Performed By: #### L 100.0100, L506.1001, L500.4050, L500.4100, L501.9520, L501.9985 #### [facility] [address] [place], [address] Absolute Neut 2.2 X10 3/uL Normal 2.0-7.7 [facility] Comment on above: Performed By: #### L 100.0100, L506.1001, L500.4050, L500.4100, L501.9520, L501.9985 #### [facility] [address] [place], [address] Basophils/100 WBC (Bld) 0.5 % Normal 0-1 [facility] Comment on above: Performed By: #### L 100.0100, L506.1001, L500.4050, L500.4100, L501.9520, L501.9985 #### [facility] [address] [place], [address] Eosinophils/100 WBC (Bld) 5.8 % High 0-5 [facility] Comment on above: Performed By: #### L 100.0100, L506.1001, L500.4050, L500.4100, L501.9520, L501.9985 #### [facility] [address] [place], [address] Erythrocyte distribution width (RBC) [Ratio] 13.2 % Normal 11.6-14.6 [facility] Comment on above: Performed By: #### L 100.0100, L506.1001, L500.4050, L500.4100, L501.9520, L501.9985 #### [facility] [address] [place], [address] Hematocrit (Bld) [Volume fraction] 39.7 % Normal 37-47 [facility] Comment on above: Performed By: #### L 100.0100, L506.1001, L500.4050, L500.4100, L501.9520, L501.9985 #### [facility] [address] [place], [address] Hemoglobin (Bld) [Mass/Vol] 13.0 g/dL Normal 12.0-15.0 [facility] Comment on above: Performed By: #### L 100.0100, L506.1001, L500.4050, L500.4100, L501.9520, L501.9985 #### [facility] [address] [facility] [place], [address] IG% 0.000 Normal 0.0-0.9 [facility] Comment on above: Result Comment: IG% - Immature Granulocytes (promyelocytes, myelocytes and metamyelocytes) > 1% indicates that a LEFT SHIFT is Present. Performed By: #### L 100.0100, L506.1001, L500.4050, L500.4100, L501.9520, L501.9985 #### [facility] [address] [facility] [place], [address] Lymphocytes/100 WBC (Bld) 33.8 % Normal 19-41 [facility] Comment on above: Performed By: #### L 100.0100, L506.1001, L500.4050, L500.4100, L501.9520, L501.9985 #### [facility] [address] [place], [address] MCH (RBC) [Entitic mass] 31.0 pg Normal 27.0-32.0 [facility] Comment on above: Performed By: #### L 100.0100, L506.1001, L500.4050, L500.4100, L501.9520, L501.9985 #### [facility] [address] [place], [address] MCHC (RBC) [Mass/Vol] 32.7 g/dL Normal 32-36 [facility] Comment on above: Performed By: #### L 100.0100, L506.1001, L500.4050, L500.4100, L501.9520, L501.9985 #### [facility] [address] [place], [address] MCV (RBC) [Entitic vol] 94.5 fL Normal 81-99 [facility] Comment on above: Performed By: #### L 100.0100, L506.1001, L500.4050, L500.4100, L501.9520, L501.9985 #### [facility] [address] [place], [address] Monocytes/100 WBC (Bld) 7.9 % Normal 0-10 [facility] Comment on above: Performed By: #### L 100.0100, L506.1001, L500.4050, L500.4100, L501.9520, L501.9985 #### [facility] [address] [place], [address] Neutrophils/100 WBC (Bld) 52.0 % Normal 47-70 [facility] Comment on above: Performed By: #### L 100.0100, L506.1001, L500.4050, L500.4100, L501.9520, L501.9985 #### [facility] [address] [place], [address] Nucleated RBC (Bld) [#/Vol] 0 10*3/uL Normal 0-5 [facility] Comment on above: Performed By: #### L 100.0100, L506.1001, L500.4050, L500.4100, L501.9520, L501.9985 #### [facility] [address] [place], [address] Platelet mean volume (Bld) [Entitic vol] 9.0 fL Normal 6.2-12.0 [facility] Comment on above: Performed By: #### L 100.0100, L506.1001, L500.4050, L500.4100, L501.9520, L501.9985 #### [facility] [address] [place], [address] Platelets (Bld) [#/Vol] 301 10*3/uL Normal 150-450 [facility] Comment on above: Performed By: #### L 100.0100, L506.1001, L500.4050, L500.4100, L501.9520, L501.9985 #### [facility] [address] [place], [address] RBC (Bld) [#/Vol] 4.20 10*6/uL Normal 4.2-5.4 [facility] Comment on above: Performed By: #### L 100.0100, L506.1001, L500.4050, L500.4100, L501.9520, L501.9985 #### [facility] [address] [place], [address] RDW SD 46.6 fl High 35.1-43.9 [facility] Comment on above: Performed By: #### L 100.0100, L506.1001, L500.4050, L500.4100, L501.9520, L501.9985 #### [facility] [address] [place], [address] WBC (Bld) [#/Vol] 4.2 10*3/uL Low 4.4-11.0 [facility] Comment on above: Performed By: #### L 100.0100, L506.1001, L500.4050, L500.4100, L501.9520, L501.9985 #### [facility] [address] [place], [address] Calculated very low density lipoprotein (VLDL) cholesterol measurementOrdered By: Sandrine Ness on 12-13-2024 Calculated very low density lipoprotein (VLDL) cholesterol measurement 15 mg/dL 5-40 [facility] Carbon dioxide, total [Moles /volume] in Central venous bloodOrdered By: Sandrine Ness on 12-13-2024 CO2 [Moles/Vol] 24.0 mmol/L 21.0-32.0 [facility] Chloride assayOrdered By: Sushil Ness on 12-13-2024 Chloride [Moles/Vol] 106 mmol/L 98-108 [facility] Comprehensive Metabolic Prof ilon 12-13-2024 Albumin [Mass/Vol] 4.3 g/dL Normal 3.4-4.8 [facility] Comment on above: Performed By: #### L 100.0100, L506.1001, L500.4050, L500.4100, L501.9520, L501.9985 #### [facility] [address] [place], [address] Albumin/Globulin [Mass ratio] 1.5 {ratio} Normal 0.9-2.4 [facility] Comment on above: Performed By: #### L 100.0100, L506.1001, L500.4050, L500.4100, L501.9520, L501.9985 #### [facility] [address] [place], [address] ALK PHOS 88 U/L Normal 35-104 [facility] Comment on above: Performed By: #### L 100.0100, L506.1001, L500.4050, L500.4100, L501.9520, L501.9985 #### [facility] [address] [place], [address] ALT [Catalytic activity/Vol] 41 U/L High <=34 [facility] Comment on above: Performed By: #### L 100.0100, L506.1001, L500.4050, L500.4100, L501.9520, L501.9985 #### [facility] [address] [place], [address] AST [Catalytic activity/Vol] 33 U/L High <=31 [facility] Comment on above: Performed By: #### L 100.0100, L506.1001, L500.4050, L500.4100, L501.9520, L501.9985 #### [facility] [address] [place], [address] Bilirubin [Mass/Vol] 0.59 mg/dL Normal 0.00-1.30 [facility] Comment on above: Performed By: #### L 100.0100, L506.1001, L500.4050, L500.4100, L501.9520, L501.9985 #### [facility] [address] [place], [address] BUN/CRE 17.6 RATIO Normal 10-20 [facility] Comment on above: Performed By: #### L 100.0100, L506.1001, L500.4050, L500.4100, L501.9520, L501.9985 #### [facility] [address] [place], [address] Calcium [Mass/Vol] 9.5 mg/dL Normal 7.6-11.0 [facility] Comment on above: Performed By: #### L 100.0100, L506.1001, L500.4050, L500.4100, L501.9520, L501.9985 #### [facility] [address] [place], [address] Chloride [Moles/Vol] 106 mmol/L Normal 98-108 [facility] Comment on above: Performed By: #### L 100.0100, L506.1001, L500.4050, L500.4100, L501.9520, L501.9985 #### [facility] [address] [place], [address] CO2 [Moles/Vol] 24.0 mmol/L Normal 21.0-32.0 [facility] Comment on above: Performed By: #### L 100.0100, L506.1001, L500.4050, L500.4100, L501.9520, L501.9985 #### [facility] [address] [place], [address] Creatinine [Mass/Vol] 0.90 mg/dL Normal 0.70-1.20 [facility] Comment on above: Performed By: #### L 100.0100, L506.1001, L500.4050, L500.4100, L501.9520, L501.9985 #### [facility] [address] [place], [address] GAP 10 Normal 5-15 [facility] Comment on above: Performed By: #### L 100.0100, L506.1001, L500.4050, L500.4100, L501.9520, L501.9985 #### [facility] [address] [place], [address] GFR/1.73 sq M.predicted among non-blacks MDRD (S/P/Bld) [Vol rate/Area] 72 mL/min/{1.73_m2} Normal >60 [facility] Comment on above: Result Comment: mL/m in/1.73m2 CKD-EPI Creatinine Equation (2020) Performed By: #### L 100.0100, L506.1001, L500.4050, L500.4100, L501.9520, L501.9985 #### [facility] [address] [place], [address] Globulin (S) [Mass/Vol] 2.9 g/dL Normal 2.2-4.2 [facility] Comment on above: Performed By: #### L 100.0100, L506.1001, L500.4050, L500.4100, L501.9520, L501.9985 #### [facility] [address] [place], [address] Glucose [Mass/Vol] 96 mg/dL Normal 70-99 [facility] Comment on above: Performed By: #### L 100.0100, L506.1001, L500.4050, L500.4100, L501.9520, L501.9985 #### [facility] [address] [place], [address] Potassium [Moles/Vol] 4.4 mmol/L Normal 3.3-5.1 [facility] Comment on above: Performed By: #### L 100.0100, L506.1001, L500.4050, L500.4100, L501.9520, L501.9985 #### [facility] [address] [place], [address] Sodium [Moles/Vol] 140 mmol/L Normal 133-145 [facility] Comment on above: Performed By: #### L 100.0100, L506.1001, L500.4050, L500.4100, L501.9520, L501.9985 #### [facility] [address] [place], [address] T PROT 7.2 g/dL Normal 5.9-8.4 [facility] Comment on above: Performed By: #### L 100.0100, L506.1001, L500.4050, L500.4100, L501.9520, L501.9985 #### [facility] [address] [place], [address] Urea nitrogen [Mass/Vol] 16 mg/dL Normal 4-19 [facility] Comment on above: Performed By: #### L 100.0100, L506.1001, L500.4050, L500.4100, L501.9520, L501.9985 #### [facility] [address] [place], [place], [address] Eosinophil percentageOrdered By: Sandrine Ness on 12-13-2024 Eosinophils/100 WBC (Bld) 5.8 % High 0-5 [facility] Erythrocyte distribution wid th ratioOrdered By: Sandrine Grover on 12-13-2024 Erythrocyte distribution width (RBC) [Ratio] 13.2 % 11.6-14.6 [facility] Erythrocyte distribution wid th standard deviationOrdered By: Sandrine Grover on 12-13-2024 Erythrocyte distribution width (RBC) [Ratio] 46.6 fl High 35.1-43.9 [facility] Glomerular filtration rate ( GFR) estimation/1.73 sq m using serum, plasma, or whole bOrdered By: Sandrine Grover on 12-13-2024 GFR/1.73 sq M.predicted among non-blacks MDRD (S/P/Bld) [Vol rate/Area] 72 mL/min/{1.73_m2} >60 [facility] Comment on above: mL/min/1.73m2 CKD-EP I Creatinine Equation (2020) Hematocrit Auto (Bld) [Volum e fraction]Ordered By: Sandrine Ness on 12-13-2024 Hematocrit (Bld) [Volume fraction] 39.7 % 37-47 [facility] Hemoglobin A1con 12-13-2024 HbA1c (Bld) [Mass fraction] 5.6 % Normal <=5.6 [facility] Comment on above: Result Comment: Norm al < 5.7 % Prediabetic 5.7 - 6.4 % Diabetic >or= 6.5 % Please note range changes. Performed By: #### L 100.0100, L506.1001, L500.4050, L500.4100, L501.9520, L501.9985 #### [facility] [address] [place], [place], [id number] Hemoglobin A1c percentageOrd ered By: Sandrine Ness on 12-13-2024 HbA1c (Bld) [Mass fraction] 5.6 % <5.7 [facility] Comment on above: Normal < 5.7 % Predi abetic 5.7 - 6.4 % Diabetic >or= 6.5 % Please note range changes. Hemoglobin measurementOrdere d By: Sandrine Ness on 12-13-2024 Hemoglobin (Bld) [Mass/Vol] 13.0 g/dL 12.0-15.0 [facility] Immature granulocytes/100 WB C Auto (Bld)Ordered By: Sandrine Ness on 12-13-2024 Immature granulocytes/100 WBC (Bld) 0.000 % 0.0-0.9 [facility] Comment on above: IG% - Immature Granu locytes (promyelocytes, myelocytes and metamyelocytes) > 1% indicates that a LEFT SHIFT is Present. LDL calc ser/plasOrdered By: Sandrine Ness on 12-13-2024 Cholesterol in LDL [Mass/Vol] 230 mg/dL [facility] Comment on above: Mkjwidvbps=109-602 m g/dL & Higher Lqtv=031 mg/dL or greaterFriedwald Equation for LDL-C Laboratory - Chemistry and C hemistry - challengeOrdered By: Sandrine Ness on 12-13-2024 AST [Catalytic activity/Vol] 33 U/L High <32 [facility] Lipid Profileon 12-13-2024 CHOL:HDL 4.35 Normal [facility] Comment on above: Performed By: #### L 100.0100, L506.1001, L500.4050, L500.4100, L501.9520, L501.9952 #### [facility] [address] [place], [place], [id number] Cholesterol [Mass/Vol] 319 mg/dL High <=200 [facility] Comment on above: Result Comment: Chol esterol level, Desirable <200 mg/dL Borderline high cholesterol 200-239 mg/dL High cholesterol >=240 mg/dL Recommendations of the NCEP Adult Treatment Panel for the following risk-cutoff thresholds for the [place] population. Performed By: #### L 100.0100, L506.1001, L500.4050, L500.4100, L501.9520, L501.9985 #### [facility] [address] [place], [address] Cholesterol in HDL [Mass/Vol] 73 mg/dL Normal [facility] Comment on above: Result Comment: Jenna onal Cholesterol Education Program (NCEP) guidelines: <40 mg/dL: Low HDL-cholesterol (major risk factor for CHD) >= 60 mg/dL: High HDL-cholesterol (negative risk factor for CHD) HDL-cholesterol is affected by a number of factors, e.g. smoking, exercise, hormones, sex and age. Performed By: #### L 100.0100, L506.1001, L500.4050, L500.4100, L501.9520, L501.9985 #### [facility] [address] [place], [address] Cholesterol in LDL [Mass/Vol] 230 mg/dL Normal [facility] Comment on above: Result Comment: Bord eeojjp=294-780 mg/dL Higher Ibrz=009 mg/dL or greater Friedwald Equation for LDL-C Performed By: #### L 100.0100, L506.1001, L500.4050, L500.4100, L501.9520, L501.9985 #### [facility] [address] [place], [address] Cholesterol in VLDL [Mass/Vol] 15 mg/dL Normal 5-40 [facility] Comment on above: Performed By: #### L 100.0100, L506.1001, L500.4050, L500.4100, L501.9520, L501.9985 #### [facility] [address] [place], [address] Triglyceride [Mass/Vol] 77 mg/dL Normal [facility] Comment on above: Result Comment: The drugs N-Acetylcysteine and Metamizole may falsely depress this assay. Normal range: <150 mg/dL Borderline High: 150-199 mg/dL High: 200-499 mg/dL Very High: >500 mg/dL Performed By: #### L 100.0100, L506.1001, L500.4050, L500.4100, L501.9520, L501.9985 #### [facility] [address] [place], [address] MCV (mean corpuscular volume ) determinationOrdered By: Sandrine Ness on 12-13-2024 MCV (RBC) [Entitic vol] 94.5 fL 81-99 [facility] Mean corpuscular hemoglobin (MCH) determinationOrdered By: Sandrine Ness on 12-13-2024 MCH (RBC) [Entitic mass] 31.0 pg 27.0-32.0 [facility] Mean corpuscular hemoglobin concentration (MCHC) determinationOrdered By: Sandrine Ness on 12-13-2024 MCHC (RBC) [Mass/Vol] 32.7 g/dL 32-36 [facility] Mean platelet volume determi nationOrdered By: Sandrine Ness on 12-13-2024 Platelet mean volume (Bld) [Entitic vol] 9.0 fL 6.2-12.0 [facility] Monocyte percentageOrdered B y: Sandrine Ness on 12-13-2024 Monocytes/100 WBC (Bld) 7.9 % 0-10 [facility] Neutrophil percentageOrdered By: Sandrine Ness on 12-13-2024 Neutrophils/100 WBC (Bld) 52.0 % 47-70 [facility] Nucleated red blood cell per centageOrdered By: Sandrine Ness on 12-13-2024 Nucleated RBC/100 WBC (Bld) [Ratio] 0 % 0-5 [facility] Platelet countOrdered By: Sushil Ness on 12-13-2024 Platelets (Bld) [#/Vol] 301 10*3/uL 150-450 [facility] Potassium measurement (mass/ volume)Ordered By: Sandrine Ness on 12-13-2024 Potassium (Unsp spec) [Mass/Vol] 4.4 mmol/L 3.3-5.1 [facility] RBC Auto (Bld) [#/Vol]Ordere d By: Sandrine Ness on 12-13-2024 RBC (Bld) [#/Vol] 4.20 10*6/uL 4.2-5.4 [facility] Screening total cholesterol/ high density lipoprotein (HDL) cholesterol ratioOrdered By: Sandrine Ness on 12-13-2024 Cholesterol.total/Choles terol in HDL [Mass ratio] 4.35 {ratio} [facility] Serum creatinine measurement (mass/volume)Ordered By: Sandrine Ness on 12-13-2024 Creatinine [Mass/Vol] 0.90 mg/dL 0.70-1.20 [facility] Serum globulin measurementOr dered By: Sandrine Ness on 12-13-2024 Globulin (S) [Mass/Vol] 2.9 g/dL 2.2-4.2 [facility] Serum glucose measurement (m ass/volume)Ordered By: Sandrine Ness on 12-13-2024 Glucose [Mass/Vol] 96 mg/dL 70-99 [facility] Serum or plasma alanine lovell otransferase (ALT) measurementOrdered By: Sandrine Ness on 12-13-2024 ALT [Catalytic activity/Vol] 41 U/L High <35 [facility] Serum or plasma albumin rosa urement (mass/volume)Ordered By: Sandrine Ness on 12-13-2024 Albumin [Mass/Vol] 4.3 g/dL 3.4-4.8 [facility] Serum or plasma albumin/glob ulin mass ratioOrdered By: Sandrine Ness on 12-13-2024 Albumin/Globulin [Mass ratio] 1.5 {ratio} 0.9-2.4 [facility] Serum or plasma alkaline lori sphatase measurementOrdered By: Sandrine Ness on 12-13-2024 ALP [Catalytic activity/Vol] 88 U/L 35-104 [facility] Serum or plasma calcium rosa urement (mass/volume)Ordered By: Sandrine Ness on 12-13-2024 Calcium [Mass/Vol] 9.5 mg/dL 7.6-11.0 [facility] Serum or plasma cholesterol in HDL measurement (mass/volume)Ordered By: Sandrine Ness on 12-13-2024 Cholesterol in HDL [Mass/Vol] 73 mg/dL >40 [facility] Comment on above: National Cholesterol Education Program (NCEP) guidelines:<40 mg/dL: Low HDL-cholesterol (major risk factor for CHD)>= 60 mg/dL: High HDL-cholesterol (negative risk factor for CHD)HDL-cholesterol is affected by a number of factors, e.g. smoking, exercise, hormones, sex and age. Serum or plasma cholesterol measurement (mass/volume)Ordered By: Sandrine Ness on 12-13-2024 Cholesterol [Mass/Vol] 319 mg/dL High <201 [facility] Comment on above: Cholesterol level, D esirable <200 mg/dLBorderline high cholesterol 200-239 mg/dLHigh cholesterol >=240 mg/dLRecommendations of the NCEP Adult Treatment Panel for the following risk-cutoff thresholds for the [place] population. Serum or plasma urea nitroge n measurement (mass/volume)Ordered By: Sandrine Ness on 12-13-2024 Urea nitrogen [Mass/Vol] 16 mg/dL 4-19 [facility] Sodium levelOrdered By: Joao Ness on 12-13-2024 Sodium [Moles/Vol] 140 mmol/L 133-145 [facility] TSH DL <= 0.005 mIU/L QnOrde red By: Sandrine Ness on 12-13-2024 TSH Qn 1.640 uIU/mL 0.300-4.200 [facility] Thyroid Stim Hormone (TSH)on 12-13-2024 TSH 1.640 uIU/mL Normal 0.300-4.200 [facility] Comment on above: Performed By: #### L 100.0100, L506.1001, L500.4050, L500.4100, L501.9520, L501.9985 #### [facility] [address], [address] Total proteinOrdered By: Sergio Ness on 12-13-2024 Protein [Mass/Vol] 7.2 g/dL 5.9-8.4 [facility] Triglycerides measurementOrd ered By: Sandrine Ness on 12-13-2024 Triglyceride [Mass/Vol] 77 mg/dL <199 [facility] Comment on above: The drugs N-Acetylcy steine and Metamizole may falsely depress this assay. Normal range: <150 mg/dLBorderline High: 150-199 mg/dLHigh: 200-499 mg/dLVery High: >500 mg/dL Vitamin D,25 Hydroxyon 12-13 Vitamin D 25-OH 17.4 ng/mL Low 30-100 [facility] Comment on above: Result Comment: Farhana min D Status Deficiency: <20 ng/mL (50nmol/L) Insufficiency: 20-30 ng/mL (50-75 nmol/L) Sufficiency: 30-100 ng/mL (75-250 nmol/L) Toxicity: >100 ng/mL (>250 nmol/L) Performed By: #### L 100.0100, L506.1001, L500.4050, L500.4100, L501.9520, L501.9985 #### [facility] [address] [place], [address] White blood cell (WBC) count Ordered By: Sandrine Ness on 12-13-2024 WBC (Bld) [#/Vol] 4.2 10*3/uL Low 4.4-11.0 [facility] Final Surgical Pathology Rep [facility] 03-12-2022 Final Surgical Pathology Report . Pathology Reports Accession: Collected Date/Time: Received Date/Time: Pathologist: [id number] 03/07/2022 12:45 EST 03/10/2022 09:36 EST MD [facility] Final Surgical Pathology Report DIAGNOSIS: LEFT FEMORAL HEAD, REPLACEMENT - OSTEOARTHRITIS WITH EXTENSIVE EBURNATION. NEGATIVE FOR INFLAMMATION OR NEOPLASIA. COMMENT: [facility] [id number] CLINICAL INFORMATION: Procedure: ANTERIOR LEFT TOTAL HIP ARTHROPLASTY Preoperative diagnosis: UNILATERAL PRIMARY OSTEOARTHRITIS LEFT HIP Postoperative diagnosis: UNILATERAL PRIMARY OSTEOARTHRITIS LEFT HIP SPECIMEN: A LEFT FEMORAL HEAD, LEFT GROSS DESCRIPTION: A. Received in formalin, labeled with the patients name, Case #[id number],[id number], and "left femoral head are 3 fragments of irregular shaped bone none of which have articular surfaces aggregating to 4 x 2.7 x 1.5 cm. RS -1 following decalcification Dictated by KUMAR SPEARS MICROSCOPIC DESCRIPTION: Slides reviewed. Electronically Signed by Pathology Report verified by [facility] MD Sign out Date: 03/12/2022 18:13 Performing Lab: [facility], [address] [place] [address] Pathology Dept Normal [facility]) Gel ABOon 03-07-2022 ABO/Rh Interp Positive Invalid Interpretation Code [facility]) Comment on above: Performed By: #### A BOG, ANSG #### [address] [address] Gel ABSon 03-07-2022 Antibody Screen Gel Negative Normal [facility] ([place]) Comment on above: Performed By: #### B MP, GFR, ALB, ANSG, ABOG #### [address] [address] LABORATORYOrdered By: Brandy Cardenas on 03-07-2022 ABO/Rh Interp Positive Invalid Interpretation Code AO BB SS Antibody Screen Gel Negative [facility]SC (03/07/22 10:24 AM) Invalid Interpretation Code AO BB SS XR FLUORO 1-2 HRS TECH TIMEo n 03-07-2022 XR FLUORO 1-2 HRS TECH TIME ORIGINAL Images acquired, not reported on this accession number. Normal [facility] ([place]) XR HIP LEFT W/PELVIS 4 VIEWS on [...] 03/07/2022 2:22:50 PM Ordering Provider: NOHEMY HAYS [facility] ([place]) .GFRon 02-21-2022 GFR Non- 75 ml/min/1.73sqm [facility] ([place]) Comment on above: Result Comment: GFR Population [...] B MP, GFR, ALB, ANSG, ABOG #### [address] [address] GFR 91 ml/min/1.73sqm Normal [facility] ([place]) Comment on above: Result Comment: GFR Population [...] B MP, GFR, ALB, ANSG, ABOG #### [address] [address] ALB 02-21-2022 Albumin Level 3.9 G/dL Normal 3.4-4.8 [facility] ([place] Comment on above: Performed By: #### B MP, GFR, ALB, ANSG, ABOG #### [address] [address] BMPon 02-21-2022 BUN/Creatinine Ratio 21 ratio Normal 7-27 [facility] ([place] Comment on above: Performed By: #### B MP, GFR, ALB, ANSG, ABOG #### [address] [address] Calcium [Mass/Vol] 9.5 mg/dL Normal 8.4-10.2 [facility] ([place]) Comment on above: Performed By: #### B MP, GFR, ALB, ANSG, ABOG #### [address] [address] Chloride [Moles/Vol] 103 mmol/L Normal 98-107 [facility] ([place] Comment on above: Performed By: #### B MP, GFR, ALB, ANSG, ABOG #### [address] [address] CO2 [Moles/Vol] 29 mmol/L Normal 23-31 [facility] ([place] Comment on above: Performed By: #### B MP, GFR, ALB, ANSG, ABOG #### [address] [address] Creatinine [Mass/Vol] 0.78 mg/dL Normal 0.55-1.02 [facility] ([place]) Comment on above: Performed By: #### B MP, GFR, ALB, ANSG, ABOG #### [address] [address] Electrolyte Balance 9.0 mEq/L Normal 4.0-15.0 [facility] ([place] Comment on above: Performed By: #### B MP, GFR, ALB, ANSG, ABOG #### [address] [address] Glucose [Mass/Vol] 85 mg/dL Normal 80-115 [facility] ([place] Comment on above: Performed By: #### B MP, GFR, ALB, ANSG, ABOG #### [address] [address] Potassium [Moles/Vol] 4.3 mmol/L Normal 3.5-5.1 [facility] ([place] Comment on above: Performed By: #### B MP, GFR, ALB, ANSG, ABOG #### [address] [address] Sodium [Moles/Vol] 141 mmol/L Normal 136-145 [facility] ([place] Comment on above: Performed By: #### B MP, GFR, ALB, ANSG, ABOG #### [address] [address] Urea nitrogen [Mass/Vol] 16 mg/dL Normal 7-18 [facility] ([place] Comment on above: Performed By: #### B MP, GFR, ALB, ANSG, ABOG #### [address] [address] .Auto Diffon 02-20-2022 Basophil, Absolute 0.0 10 3/mcL Normal 0.0-0.2 [facility] ([place] Comment on above: Performed By: #### B MP, GFR, ALB, ANSG, ABOG #### [address] [address] Basophils/100 WBC (Bld) 0.7 % Normal 0.0-2.5 [facility] ([place]) Comment on above: Performed By: #### B MP, GFR, ALB, ANSG, ABOG #### [address] [address] Eosinophil, Absolute 0.3 10 3/mcL Normal 0.0-0.4 [facility] ([place] Comment on above: Performed By: #### B MP, GFR, ALB, ANSG, ABOG #### [address] [address] Eosinophils/100 WBC (Bld) 6.7 % Normal 0.0-7.0 [facility] ([place] Comment on above: Performed By: #### B MP, GFR, ALB, ANSG, ABOG #### [address] [address] Lymphocyte, Absolute 1.0 10 3/mcL Normal 0.8-3.9 [facility] ([place] Comment on above: Performed By: #### B MP, GFR, ALB, ANSG, ABOG #### [address] [address] Lymphocytes/100 WBC (Bld) 23.1 % Normal 10.0-50.0 [facility] ([place] Comment on above: Performed By: #### B MP, GFR, ALB, ANSG, ABOG #### [address] [address] Monocyte, Absolute 0.3 10 3/mcL Normal 0.2-1.0 [facility] ([place] Comment on above: Performed By: #### B MP, GFR, ALB, ANSG, ABOG #### [address] [address] Monocytes/100 WBC (Bld) 7.1 % Normal 1.7-13.0 [facility] Comment on above: Performed By: #### B MP, GFR, ALB, ANSG, ABOG #### [address] [address] Neutrophils/100 WBC (Bld) 62.4 % Normal 37.0-80.0 [facility] ([place] Comment on above: Performed By: #### B MP, GFR, ALB, ANSG, ABOG #### [address] [address] .NEUABSon 02-20-2022 Neutrophil, Absolute 2.6 10 3/mcL Low 2.9-6.2 [facility] ([place] Comment on above: Performed By: #### B MP, GFR, ALB, ANSG, ABOG #### [address] [address] CBCon 02-20-2022 Erythrocyte distribution width (RBC) [Ratio] 13.5 % Normal 11.5-14.5 [facility] ([place] Comment on above: Order Comment: Pre-A dmission Testing Performed By: #### B MP, GFR, ALB, ANSG, ABOG #### [address] [address] Hematocrit (Bld) [Volume fraction] 37.4 % Normal 37.0-47.0 [facility] ([place] Comment on above: Order Comment: Pre-A dmission Testing Performed By: #### B MP, GFR, ALB, ANSG, ABOG #### [place] [address] Hgb 12.8 G/dL Normal 12.0-16.0 [facility] ([place] Comment on above: Order Comment: Pre-A dmission Testing Performed By: #### B MP, GFR, ALB, ANSG, ABOG #### [address] [address] MCH (RBC) [Entitic mass] 31.4 pg High 27.0-31.2 [facility] ([place] Comment on above: Order Comment: Pre-A dmission Testing Performed By: #### B MP, GFR, ALB, ANSG, ABOG #### [address] [address] MCHC 34.2 G/dL Normal 33.0-37.0 [facility] ([place] Comment on above: Order Comment: Pre-A dmission Testing Performed By: #### B MP, GFR, ALB, ANSG, ABOG #### [address] [address] MCV (RBC) [Entitic vol] 91.9 fL Normal 80.0-94.0 [facility] ([place] Comment on above: Order Comment: Pre-A dmission Testing Performed By: #### B MP, GFR, ALB, ANSG, ABOG #### [address] [address] Platelet 280 10 3/mcL Normal 130-400 [facility] ([place] Comment on above: Order Comment: Pre-A dmission Testing Performed By: #### B MP, GFR, ALB, ANSG, ABOG #### [address] [address] Platelet mean volume (Bld) [Entitic vol] 6.5 fL Low 7.4-10.4 [facility] ([place] Comment on above: Order Comment: Pre-A dmission Testing Performed By: #### B MP, GFR, ALB, ANSG, ABOG #### [address] [address] RBC 4.07 10 6/mcL Low 4.20-5.40 [facility] ([place] Comment on above: Order Comment: Pre-A dmission Testing Performed By: #### B MP, GFR, ALB, ANSG, ABOG #### [address] [address] WBC 4.2 10 3/mcL Low 4.6-10.8 [facility] ([place] Comment on above: Order Comment: Pre-A dmission Testing Performed By: #### B MP, GFR, ALB, ANSG, ABOG #### [address] [address] Gel ABOon 02-20-2022 ABO/Rh Interp Positive Invalid Interpretation Code [facility] ([place] Comment on above: Performed By: #### B MP, GFR, ALB, ANSG, ABOG #### [address] [address] Gel ABSon 02-20-2022 Antibody Screen Gel Negative Normal [facility] [place]) Comment on above: Performed By: #### B MP, GFR, ALB, ANSG, ABOG #### [address] [address] LABORATORYOrdered By: Brandy Cardenas on 02-20-2022 ABO/Rh [...] AO Chemistry S GFR Non- 75 ml/min/1.73sqm Inval id Interpretation Code AO Chemistry S Vital Signs Date Time Vital Sign Value Performing Clinician Facility 03-07-2022 18:48-0500 Diastolic Blood Pressure Non-Invasive [address] NOHEMY HAYS MD [facility] 03-07-2022 18:48-0500 Heart rate 71 /min DR NOHEMY HAYS MD [facility] 03-07-2022 18:48-0500 Respiratory rate 15 /min DR NOHEMY HAYS MD [facility] 03-07-2022 18:48-0500 Systolic Blood Pressure Non-Invasive [address] NOHEMY HAYS MD [facility] 03-07-2022 17:15-0500 Diastolic Blood Pressure Non-Invasive [address] NOHEMY HAYS MD [facility] 03-07-2022 17:15-0500 Heart rate 62 /min DR NOHEMY HAYS MD [facility] 03-07-2022 17:15-0500 Respiratory rate 18 /min DR NOHEMY HAYS MD [facility] 03-07-2022 17:15-0500 Systolic Blood Pressure Non-Invasive [address] NOHEMY HAYS MD [facility] 03-07-2022 16:14-0500 Diastolic Blood Pressure Non-Invasive [address] NOHEMY HAYS MD [facility] 03-07-2022 16:14-0500 Heart rate 65 /min DR NOHEMY HAYS MD [facility] 03-07-2022 16:14-0500 Respiratory rate 18 /min DR NOHEMY HAYS MD [facility] 03-07-2022 16:14-0500 Systolic Blood Pressure Non-Invasive [address] NOHEMY HAYS MD [facility] 03-07-2022 14:15-0500 Body temperature 96.08 [degF] DR NOHEMY HAYS MD [facility] 03-07-2022 13:45-0500 Respiratory Rate - Anes 10 br/min DR NOHEMY HAYS MD [facility] 03-07-2022 13:40-0500 Respiratory Rate - Anes 9 br/min DR NOHEMY HAYS MD [facility] 03-07-2022 13:35-0500 Respiratory Rate - Anes 9 br/min DR NOHEMY HAYS MD [facility] 03-07-2022 09:58-0500 Body height [address] NOHEMY HYAS MD [facility] 03-07-2022 09:58-0500 Body temperature 97.16 [degF] DR NOHEMY HAYS MD [facility] 03-07-2022 09:58-0500 Body weight [address] NOHEMY HAYS MD [facility] 03-07-2022 09:58-0500 Heart rate 65 /min DR NOHEMY HAYS MD [facility] 02-20-2022 10:03-0500 Body height [address] NOHEMY HAYS MD [facility] 02-20-2022 10:03-0500 Body weight [address] NOHEMY HAYS MD [facility] 07-22-2021 12:07-0400 Body height 160.[address] Fabienne Ling Work Phone: [facility] Work Phone: 07-22-2021 12:07-0400 Body mass index (BMI) [Ratio] 22.1 kg/m2 Dr. Fabienne Ling Work Phone: [facility] Work Phone: 07-22-2021 [id number]:[id number] Body weight 56.[address] Fabienne Ling Work Phone: [facility] Work Phone: Encounters Encounter Date Encounter Type Care Provider Facility Start: 01-03-2025 End: 01-03-2025 ambulatory Sandrine Ness Facility:[facility] Start: 12-21-2024 Encounter for genera l adult medical examination with abnormal findings [facility] Start: 12-13-2024 End: 12-13-[address] Fabienne Ling DO Work Phone: -Laboratory [facility] Start: 12-13-2024 End: 12-13-[address] Sandrine Ness MD -Laboratory [place] [employer] [facility] Start: 12-13-2024 End: 12-13-2024 ambulatory Fabienne Ling Facility:[facility] Start: 03-07-2022 End: 03-07-2022 ambulatory NOHEMY HAYS MD Facility:B Start: 03-07-2022 End: 03-07-[address] NOHEMY HAYS MD [facility] Start: 02-20-2022 End: 02-21-2022 ambulatory NOHEMY HAYS MD Facility:[facility] Start: 02-20-2022 End: 02-20-[address] NOHEMY HAYS MD [facility] Start: 07-30-2021 End: 07-30-[address] Fabienne Ling Work Phone: [facility]-Outpatient Bone Densitometry Start: 07-22-2021 Non-patient / Non-visit Dr. Alix Ling Work Phone: [facility] Procedures Date Procedure Procedure Detail Performing Clinician Start: 12-13-2024 Vitamin D, 25-hydrox y measurement Dr. Fabienne Ling DO Work Phone: Comment on above: Vitamin D StatusDefi ciency: <20 ng/mL (50nmol/L)Insufficiency: 20-30 ng/mL (50-75 nmol/L)Sufficiency: 30-100 ng/mL (75-250 nmol/L)Toxicity: >100 ng/mL (>250 nmol/L) Start: 03-07-2022 Total replacement of left hip joint DR NOHEMY HAYS MD Comment on above: ANTERIOR Start: 07-30-2021 Dual energy X-ray absorptiometry Dr. Fabienne Ling Work Phone: Start: 07-30-2021 Screening mammography Paula Ling Work Phone: Colonoscopy DR NOHEMY Kruger MD Dilation and curettage DR TAISHA POWELL Excision of bunion DR NOHEMY HAYS MD Comment on above: RIGHT Hysteroscopy DR NOHEMY Kruger MD Wrist joint structur e (body structure) DR NOHEMY HAYS MD Comment on above: RIGHT Payers Date Payer Category Payer Self-pay [id number] 2024 Unknown [id number] 2022 Unknown [id number] 1960 Unknown [id number] 2.16.8 [id number] 1960 Unknown [id number] 2.16.8 [id number] Unknown SELF PAY INSURANCE [id number] Unknown SELF PAY INSURANCE [id number] Unknown [id number] 2.16.8 [id number] Unknown [id number] 2.16.8 [id number] Unknown [id number] 2.16.8 [id number] Social History Date Type Detail Facility Tobacco smoking stat [facility] Unknown if ever smoked [facility] Work Phone: Start: 1960 Sex Assigned At Female A [facility] Start: 09-20-2021 End: 02-20-2022 Tobacco smoking status Never smoked tobacco (finding) [facility] Sex Female [facility] Medical Equipment Procedure Code Equipment Code Equipment Origin al Text Equipment Identifier Dates Colonoscopy RESOLUTION 360 C LIP 235 CM FDA Start: 09-25-2021 Functional Status Date Assessment Result Facility 03-07-2022 Functional Status Awake, Resting [facility] 03-07-2022 Functional Status bilateral knee high l [facility] 03-07-2022 Functional Status Mod I [facility] 03-07-2022 Functional Status ice on [facility] 03-07-2022 Functional Status Maintained [facility] 02-20-2022 Functional Status Sensory Deficits None A [facility] Mental Status Date Assessment Result Facility 03-07-2022 Mental Status Orientation Oriented x [facility] 03-07-2022 Mental Status Orientation Asse ssment Oriented x [address] [place] [address] 03-07-2022 Mental Status [facility] Clinical Notes 03-07-2022 Note Date & Type [...] Follow these instructions at home: Medicines Take cjxr-iox-lakqzqz and prescription medicines only as told by [...] and water are not available, 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 ?Change your dressing as told by your [...] as fried or sweet foods. ?Take an apjb-fsx-gmaaeeg or prescription medicine for constipation. Do not [...] 07/07/2018 Document Revised: 08/01/2019 Document Reviewed: 07/07/2018 [employer] Patient Education 2020 [employer] 03/07/2022 15:27:45 Monitored Anesthesia Care, Care After [...] before eating solid foods. General instructions Take ahpi-uoh-dcxtubf and prescription medicines only as told by [...] 07/13/2016 Document Revised: 06/21/2018 Document Reviewed: 07/13/2016 [employer] Patient Education 2020 [employer] 03/07/2022 15:27:43 Spinal Anesthesia and Epidural Anesthesia, [...] what activities are safe for you. Take qanm-vaa-ymxpujs and prescription medicines only as told by [...] 06/12/2004 Document Revised: 09/12/2019 Document Reviewed: 07/14/2016 [employer] Patient Education 2020 [employer] Follow Up Care 01/29/2022 07:45:59 With:NOHEMY HAYS Address: [address] [place] [address] [address] [place] [address] [phone] Business (1) When: Unknown [facility] 03-07-2022 Summary of episod e note Discharge Instructions Thank you for allowing [facility] to assist you with your healthcare needs. The following is important discharge information regarding your hospital visit. 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 ? Change your dressing as told by [...] fried or sweet foods. ? Take an xyck-kzc-bejnwbm or prescription medicine for constipation. Do not [...] 07/07/2018 Document Revised: 08/01/2019 Document Reviewed: 07/07/2018 [employer] Patient Education 2020 [employer] Monitored Anesthesia Care, Care After These instructions [...] before eating solid foods. General instructions Take pgjf-eud-whkdfrk and prescription medicines only as told by [...] 07/13/2016 Document Revised: 06/21/2018 Document Reviewed: 07/13/2016 [employer] Patient Education 2020 [employer]. Spinal Anesthesia and Epidural Anesthesia, Care After [...] what activities are safe for you. Take jrri-dbl-mbinazz and prescription medicines only as told by [...] 06/12/2004 Document Revised: 09/12/2019 Document Reviewed: 07/14/2016 [employer] Patient Education 2020 [employer] Additional Information VACCINATE! IT SAVES LIVES! Members of the community who have not yet received the COVID-19 vaccine and would like to receive it can visit one of [facility] vaccine clinics. There are many vaccine clinic locations within the [facility]. For locations and available times, please visit [email or web address] It is important to note that some COVID mobile vaccine clinics are held outdoors and may be canceled in rainy or stormy conditions. To learn more about pediatric vaccinations (ages 5-11), we invite you to visit the [facility] webpage. [email or web address] [email or web address] [email or web address] To learn more about the COVID-19 vaccine, we invite you to visit the [facility] website for a list of frequently asked questions. [email or web address] [email or web address] [facility] Patient Portal Access Instructions: Stay connected with your healthcare team and access your personal medical information anytime with the [facility] Patient Portal.If you would like a full copy of your medical records, please contact the [facility] Medical Records Department, Thursday through Thursday between 8a.m. and 4:30p.m. Please follow the directions below to access the portal: 1.Access the email account you provided upon registration to the hospital.2.Look for an invitation email from [facility].3.Open the email and access the invitation link: Accept Invitation to [facility]4.Fill in the required adams to create your account. Sign into [email or web address] with your username and password that you [...] you will allow to register on the [facility] Patient Portal for access to your information. You can also access the [facility] Patient Portal on the [employer] e[employer]. Simply click on "Health Records" under "Health Data" and then click on the [facility] logo. [...] Call your local pharmacy or go to [email or web address] to find one close to you.3.Make use of household items: Use cat litter or old coffee grounds to dispose medications if other options are not available. Mix your drugs with these household products, seal them in an airtight container and throw it into the garbage. Call [facility]: [phone] to be sure your drugs can be [...] been reviewed and explained to me and IWILLAM KAREN S understand my current condition and have read and understand these discharge instructions. I have received a written copy of the plan/instructions. If I have questions, I am aware that I should contact my doctor. 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 Signature: Date/Time: Relationship to Patient: Witness Name/Signature: Date/Time: [facility] 03-07-2022 Note ORIGINAL EXAMINATION: 1 x-ray [...] 03/07/2022 2:22:50 PM Ordering Provider: NOHEMY HAYS [facility] 03-07-2022 Note ORIGINAL EXAMINATION: 1 x-ray [...] 03/07/2022 2:22:50 PM Ordering Provider: NOHEMY HAYS [facility] 03-07-2022 Anesthesiology Consult note Patient: JEFFREY QUARLES Age: 62 years Sex: Female : 1960 Associated Diagnoses: None Author: TIMO CEJA Assessment Postanesthesia assessment Vitals: Reviewed Results: Vital [...] by TIMO CEJA on 03/07/2022 01:56 PM [facility] 03-07-2022 Note ORIGINAL Images acquired, not reported on this accession number. [facility] 03-07-2022 Note ORIGINAL Images acquired, not reported on this accession number. [facility] 03-07-2022 Anesthesiology Consult note Patient: JEFFREY [...] Grandparent Father Stroke Father Procedure history: Bunionectomy ([id number]). Comments: 02/20/2022 10:09 Danyelle Hu RN RIGHT Hysteroscopy ([id number]). Dilation and curettage ([id number]). Colonoscopy ([id number]). Wrist joint ([id number]). Comments: 02/20/2022 10:09 Danyelle Hu RN RIGHT [...] Resp Rate 17 br/min (MAR 07 09:58) HRX670 mmHg (MAR 07 09:58) DBP63 mmHg (MAR [...] no difficulties Skin Temperature Warm Skin Description [place], Normal for ethnicity, Dry Skin Integrity Intact Skin Moisture General Dry IV Present Present Extremity Movement Equal Characteristics of Speech Clear Level of Consciousness Alert Sensation All Extremities Intact Affect/Behavior Appropriate Orientation Oriented x 4 Infectious Disease Symptoms Patient states no symptoms Allergies Yes Life Guard On Yes Consent Form Signed Yes Patient [...] Safety Brochure Information Reviewed Unable to complete [facility] Video Viewed No Teaching Evaluation No further [...] Room 03/07/2022 9:52 . Assessment and Plan [place] [employer] (ASA) physical status classification: Class II. Anesthetic Preoperative Plan Premedication: intravenous. Anesthetic technique: Spinal. Regional: Spinal. Postoperative pain management: Per surgeon. Risks discussed: nausea, vomiting, headache, sore throat, dental injury, hypotension, allergic reaction, serious complications. Informed consent: signed by patient. Digitally Signed by TIMO CEJA on 03/07/2022 10:16 AM [facility] Evaluation + Plan note Future Appointments [facility] Evaluation note No assessment inform ation available [facility] Work Phone: Hospital course Narrative No data available for this section [facility] Hospital Discharge instructions No data available for this section [facility] Reason for referral (narrative) No reason for referral information available [facility] Work Phone: Chief Complaint and Reason for Visit Chief [...] this section No data available for this sectionGoals may be documented in an alternate section Care Team (unrecognized sect ion and content) Care Team Personnel Name: SANDRINE NESS Member Role: Primary Care Physician Address: Address: [address] [place] [address]- Care Team Related Persons Name: LINDA QUARLES Address: Home [address] [place] [address] Care Team Personnel Name: SANDRINE NESS Member Role: Primary Care Physician Address: Address: [address] [place] [address]- Care Team Related Persons Name: LINDA QUARLES Address: Home [address] [place] [address] INFORMATION SOURCE (unrecogn ized section and content) DATE CREATED AUTHOR 03/13/2022 [facility] ([place]) DATE CREATED AUTHOR AUTHOR'S ORGANIZ ATION 01/15/2025 [facility] Care Teams (unrecognized sec tion and content) Team Status: Active Member Role/Relationship Status Dates Dr. Fabienne Malys , DO Primary care physician Active Team Status: Inactive Member Role/Relationship Status Dates Dr. Fabienne Ling , Primary care physician Active Start: December 13, 2024 End: December 13, 2024 Dr. Sandrine Ness MD Attending physician Active Start: December 13, 2024 End: December 13, 2024 FOR RECORDS PERTAINING TO PATIENTS WHO ARE [...] BE BASED ON THE PRIMARY CLINICAL RECORDS. [facility] [employer] provides no warranty or guarantee of the accuracy or completeness of information in this document.
[2025-01-31 16:09] LABS: Age Gdln ACOG Testing 30-65 (.); HPV APTIMA, High Risk Negative (Negative)
== END | disposition home or self-care (01) ==
LOC: LABSPEC 15:36
PROVIDERS: PCP Family Medicine; Referring Provider Family Medicine; Visit Provider Family Medicine
DX: Z12.4 Encounter for screening for malignant neoplasm of cervix (principal)
CPT/HCPCS: 87624; 88175; G0145